=== PATIENT | male | born 1950 | race Caucasian/White ===

== ENCOUNTER 2017-03-09 14:03 | Inpatient (IN) | payer OTHER, MEDICARE ==
[~2017-03-09] VITALS: Ht 182.9 cm; Wt 71.2 kg
[~2017-03-09 14:03] MED LIST: ARIPIPRAZOLE2 MG PO; DULOXETINE HCL60 MG PO; GEMFIBROZIL600 M1 PO; IBUPROFEN600 MG PO; LEVEMIR100 UNIT/1 SC; LEVSIN0.125 M1 PO; METFORMIN HCL500 M3 PO; NOVOLOG100 UNIT/2 SC; OMEPRAZOLE20 M2 PO; OXYCODONE-ACET1 EAC1 PO; PERCOCET 325 MG1 TA2 PO; PRAVASTATIN SOD40 M2 PO; ZETIA10 M1 PO; ZOFRAN ODT4 M1 SL; ZOFRAN4 M1 PO
--- NOTE | 2017-03-09 14:24 | ED AMS/SEIZURE/WEAK/DIZZY ---
History of Present Illness General Chief Complaint: Syncope and Near-Syncope Stated Complaint: SYNCOPE Source: patient, family, old records Exam Limitations: no limitations Vital Signs & Intake/Output Vital Signs & Intake/Output Vital Signs Date Time Temp Pulse Resp B/P B/P Pulse O2 O2 Flow FiO2 Mean Ox Delivery Rate 03/09 1837 97.8 89 20 150/85 100 03/09 1615 98 Room Air 03/09 1613 95.0 82 18 135/83 98 Room Air 03/09 1406 96.5 121 16 95/69 96 Room Air Allergies Coded Allergies: NO KNOWN ALLERGIES (07/22/16) Triage Note: 66 Y/O MALE C/O SYNCOPE TODAY. STATES HE GOT UP FROM THE COUCH AND THEN REMEMBERS "EVERYTHING WENT WHITE AND THEN I WOKE UP". HX PANCREATIC CANCER, FINISHED CHEMO 6 MONTHS AGO AND HAD PORTION OF PANCREAS REMOVED AND SPLEEN REMOVED. AT PRESENT, DENIES PAIN. DENIES SOB. C/O WEAKNESS. B/P /69. HR 120S TAKEN TO ROOM 3 FOR EKG/EVAL Triage Nurses Notes Reviewed? yes Onset: Abrupt Duration: hour(s): (1 hr ago), better Timing: recent history Injury Environment: home Severity: mild, moderate Severity Numbers: 6 No Modifying Factors: none Associated Symptoms: denies HPI: 66-year-old male with history of pancreatic cancer diabetes hypertension presents to the ER if he had a syncopal episode just prior to arrival. The patient states that he was sitting on a couch feeling lightheaded and dizzy when he states he got up to go to the kitchen to attempt to splashed water on his face and he states the next thing he recalls is waking up on the floor. His was there, and help to couch. She states that initially he was drowsy. The patient denies any chest pain palpitations headache nausea vomiting abdominal pain. 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 He finished chemotherapy 2 months ago his oncologist is Dr. triplett. The patient denies any complaints at this time. His states over the past few days he's been drowsy, is been complaining of generalized malaise. He reports that his sugars have been fluctuating anywhere from the 40s to 600s over the past few days. No cough no hemoptysis no shortness of breath or pain with inspiration the patient had a similar episode a few months ago however did not seek care at the time (MALLORY CACERES) Reconcile Medications Duloxetine HCl 60 MG CAPSULE.DR 1 CAP PO BID DEPRESSION (Reported) Ezetimibe (Zetia) 10 MG TABLET 1 TAB PO DAILY CHOLESTEROL (Reported) Gemfibrozil 600 MG TABLET 1 TAB PO BID CHOLESTEROL (Reported) Insulin Aspart (Novolog) (Unknown Strength) VIAL (Unknown Dose) SC SEE SLIDING SCALE DIABETES (Reported) Insulin Detemir (Levemir) 100 UNIT/1 ML VIAL 60 UNITS SC BID DIABETES ( Reported) Metformin HCl 500 MG TABLET 1 TAB PO BID DIABETES (Reported) Omeprazole 20 MG CAPSULE.DR 1 CAP PO BID GI (Reported) Oxycodone HCl 15 MG TABLET 1 TAB PO BIDP PRN PAIN (Reported) Pravastatin Sodium 40 MG TABLET 1 TAB PO DAILY CHOLESTEROL (Reported) (JUAN MIGUEL SAHU,ERI Wolff) Past History Travel History Traveled to [place] past 21 day No Medical History Any Pertinent Medical History? see below for history Neurological: NONE EENT: NONE Cardiovascular: hyperlipidemia Respiratory: NONE Gastrointestinal: NONE Hepatic: NONE Renal: NONE Musculoskeletal: disk herniation Psychiatric: NONE Endocrine: diabetes Blood Disorders: NONE Cancer(s): PANCREATIC CANCER Surgical History Surgical History: partial pancreectomy Psychosocial History Who do you live with Spouse What is your primary language Syriac Tobacco Use: Current Daily Use Daily Tobacco Use Amount/Type: => 5 Cigarettes daily Family History Hx Contributory? No (MALLORY CACERES) Review of Systems Review of Systems Constitutional: Reports: see HPI. All Other Systems: Reviewed and Negative Comments Review of systems: See HPI, All other systems negative. Constitutional, no chills no fever, no malaise HEENT: No visual changes no sore throat no congestion Cardiovascular: No chest pain , no palpitation Skin: no rashes, no change in skin Respiratory: No dyspnea no cough no sputum GI: No nausea no vomiting, no diarrhea, : No dysuria No hematuria, no frequency, no discharge Muscle skeletal: No joint pain, no joint swelling, no back pain, no neck pain, Neurologic: No numbness no confusion, no headache Psych: No stress no depression,. Heme/endocrine: No bruising Immunology: No lymphadenopathy (MALLORY CACERES) Physical Exam Physical Exam General Appearance: well developed/nourished, no apparent distress, alert, awake Comments: Well-developed well-nourished person in no acute distress HEENT: Normal EENT exam; PERRL, EOMI, no nystagmus. HEAD is atraumatic. moist mucous membranes. Neck: Supple, normal range of motion Back: Nontender, no CVA tenderness. Full range of motion Cardiovascular: Regular rate and rhythms no murmurs rubs Respiratory: Chest nontender.There were no bony deformities, no asymmetry. No respiratory distress. Patient speaking in full complete sentences. Breath sounds clear to auscultation bilaterally: NO W/R/R Abdomen: Soft, nontender nondistended, no appreciable organomegaly. Normal bowel sounds. No rebound/guarding, No appreciable enlargement of the abdominal aorta, No ascites. Extremity: No edema, full range of motion of extremities, Neuro: Alert oriented x3, motor sensory normal, cranial nerves II through XII grossly intact. There were no obvious focal neurologic abnormalities. Skin: No appreciable rash on exposed skin, skin is warm and dry. Psych: Mood and affect is normal, memory and judgment is normal. Core Measures ACS in differential dx? Yes CVA/TIA Diagnosis: No Severe Sepsis Present: No Septic Shock Present: No (ERNESTINA LINCOLN,MALLORY) Progress Differential Diagnosis: arrythmia, alcohol intoxication, anemia, benign positional vertigo, CVA/stroke, drug intoxication, electrolyte imbalance, postural hypotension, presyncope, subarachnoid Hem., vertebrobasilar insuff, pe, ami Plan of Care: Orders Procedure Date/time Status Regular Diet 03/10 B Active THYROID STIMULATING HORMONE 03/10 0600 Active LIPID PANEL 03/10 0600 Active GLYCOSYLATED HGB 03/10 0600 Active FREE T4 03/10 0600 Active CBC WITHOUT DIFFERENTIAL 03/10 0600 Active BASIC ELECTROLYTES PLUS BUN&CR 03/10 0600 Active TROPONIN LEVEL 03/09 2200 Active EKG 03/09 220 Active CULTURE,URINE 03/09 1915 Active LOWER RESPIRATORY CULTURE 03/09 1915 Active BLOOD CULTURE 03/09 1915 Active URINALYSIS 03/09 1915 Complete Pathway - chart 03/09 1909 Active Pathway - chart 03/09 1907 Active House Staff 03/09 1907 Active Patient Data 03/09 1907 Active Code Status 03/09 190 Active LACTIC ACID 03/09 1854 Active D-DIMER 03/09 1850 Active Add-on Test (ER Only) 03/09 1849 Active Admit to inpatient 03/09 1742 Active Patient Data 03/09 1740 Active Intake & Output 03/09 1615 Active LACTIC ACID 03/09 1554 Complete Saline Lock 03/09 1431 Active PARTIAL THROMBOPLASTIN TIME 03/09 1431 Complete PROTHROMBIN TIME 03/09 1431 Complete COMPREHENSIVE METABOLIC PANEL 03/09 1431 Complete CBC WITHOUT DIFFERENTIAL 03/09 1431 Complete EKG 03/09 1404 Active VTE Mechanical Prophylaxis 03/09 UNK Active MISTAKE 03/09 UNK Active Telemetry/Cottrell Blower 03/09 UNK Active FingerStick- Glucose 03/09 UNK Active Current Medications Sig/Clover Start time Last Medication Dose Stop Time Status Admin Pravastatin Sodium 40 MG 1700 03/10 1700 AC (Pravachol) Ezetimibe 10 MG DAILY 03/10 1000 AC (Zetia) Insulin Aspart 0 TIDAC 03/10 0800 AC (NovoLOG) Duloxetine HCl 60 MG BID 03/09 2200 AC (Cymbalta) Gemfibrozil 600 MG BID 03/09 2200 AC (Lopid 600 MG Tab) Insulin Detemir 30 UNITS BID 03/09 2200 AC (Levemir) Omeprazole 20 MG BID 03/09 2200 AC (Prilosec) Oxycodone HCl 15 MG BID 03/09 2200 AC (Roxicodone) Sodium Chloride 1,000 ML Q20H 03/09 1945 AC (Normal Saline 0.9%) Acetaminophen 650 MG Q6P PRN 03/09 1915 AC (Tylenol) Ibuprofen 600 MG Q6P PRN 03/09 1915 AC (Motrin) Oxycodone/ 1 TAB Q6P PRN 03/09 1915 AC Acetaminophen (Percocet) Enoxaparin Sodium 40 MG DAILY 03/09 1905 AC (Lovenox) Laboratory Tests 03/09/17 193: Urinalysis LIGHT H, Urine Color YEL, Urine Clarity CLEAR, Urine pH 6.0, Ur Specific Rice 1.020, Urine Protein TRACE H, Urine Ketones TRACE H, Urine Nitrite NEG, Urine Bilirubin NEG, Urine Urobilinogen 0.2, Ur Leukocyte Esterase NEG, Ur Microscopic SEDIMENT EXAMINED, Urine Hemoglobin NEG, Urine Glucose NEG 03/09/17 1607: Lactic Acid 2.3 H 03/09/17 1607: Anion Gap 13, Estimated GFR > 60, BUN/Creatinine Ratio 26.3 H, Glucose 147 H, Calcium 9.8, Total Bilirubin 0.5, AST 14 L, ALT 20 L, Alkaline Phosphatase 101 , Total Protein 6.2 L, Albumin 3.8, Globulin 2.4, Albumin/Globulin Ratio 1.6 03/09/17 1454: PT 9.9, INR 0.94, APTT 22 L, CBC w Diff MAN DIFF ORDERED, RBC 5.34, MCV 88.4, MCH 28.9, RDW 16.2 H, Gran % 68.5, Lymphocytes % 20.6, Monocytes % 8.7, Eosinophils % 1.0, Basophils % 1.2, Absolute Granulocytes 11.0 H, Segmented Neutrophils 68, Absolute Lymphocytes 3.3, Lymphocytes 23, Monocytes 8, Absolute Monocytes 1.4 H, Eosinophils 1, Absolute Eosinophils 0.2, Absolute Basophils 0.2, Normocytic RBCs VERIFIED, Normochromic RBCs VERIFIED, PUBS MCHC 32.7 L Microbiology 03/09 1915 URINE ROUT: Urine Culture - COLB 03/09 1915 LOWER RESP: Respiratory Culture - COLB 03/09 1915 LOWER RESP: Gram Stain - COLB 03/09 1915 BLOOD: Blood Culture - COLB 03/09 1915 BLOOD: Blood Culture - COLB Patient's white blood cell count is persistently elevated IV fluids ordered Repeat evaluation patient resting in no apparent distress he is orthostatic however case was discussed with Dr. Goldberg agrees with plan. Case discussed with Dr. alvarez will admit 1745 dr alvarez in dept to eval pt (ERNESTINA LINCOLN,MALLORY) Diagnostic Imaging: Viewed by Me: Radiology Read, CT Scan. Discussed w/RAD: Radiology Read, CT Scan. Radiology Impression: PATIENT: ROBINSON CAMPO PRESENT AGE: 66 PATIENT ACCOUNT NO: [id number] : 48 LOCATION: [facility] ORDERING PHYSICIAN: MALLORY LINCOLN SERVICE DATE: 03/09/17 EXAM TYPE: RAD - XRY-PORTABLE CHEST XRAY EXAMINATION: XR PORTABLE CHEST CLINICAL INFORMATION: Syncope COMPARISON: Prior chest 07/30/2016 TECHNIQUE: Portable frontal view of the chest was obtained. FINDINGS: Slightly limited as the costophrenic angle on the left is outside the [id number] with examination. Central venous catheter tip in the region of the SVC. LUNGS: Clear. The cardiac silhouette mediastinum pulmonary vascularity are normal. IMPRESSION: Slightly limited examination as the last costophrenic angle is outside the [id number] the exam. Otherwise no acute disease DICTATED BY: SABINO LUCERO MD DATE/ TIME DICTATED:03/09/171510 PRODUCTION POSTING CLERK:SHRUTHI DATE/TIME TRANSCRIBED: 03/09/171510 CONFIDENTIAL, DO NOT COPY WITHOUT APPROPRIATE AUTHORIZATION. < Electronically signed in Other Vendor System> SIGNED BY: SABINO LUCERO MD 03/09/171515, PATIENT: ROBINSON CAMPO PRESENT AGE: 66 PATIENT ACCOUNT NO: [id number] : 48 LOCATION: [facility] ORDERING PHYSICIAN: MALLORY LINCOLN SERVICE DATE: 03/09/17 EXAM TYPE: CAT - CT ABD & PELVIS W/O IV CONTRAS EXAMINATION: CT ABDOMEN AND PELVIS WITHOUT CONTRAST CLINICAL INFORMATION: History of pancreatic cancer. Syncope. COMPARISON : 05/04/2016 TECHNIQUE: Multidetector volumetric imaging was performed from the superior aspect of the liver through the pubic symphysis. Sagittal and coronal reformatted images were obtained on the technologist's workstation. DLP: 289 mGy -cm FINDINGS: LUNG BASES: The visualized lung bases are unremarkable. LIVER, GALLBLADDER, AND BILIARY TREE: The liver is normal in size, shape, and attenuation. No focal hepatic lesion or biliary ductal dilatation is present. Likely small gallstones in the gallbladder lumen. No wall thickening or pericholecystic fluid. PANCREAS: Postsurgical changes with absence of the distal pancreatic body and tail. This suggests resection of the previous pancreatic mass. The remaining pancreatic tissue is atrophic, unchanged. No recurrent mass in the resection bed. SPLEEN: The spleen is not seen and also likely removed. This is a change from prior. ADRENAL GLANDS: Mild thickening of the left adrenal gland with no focal nodule. The right adrenal gland is unremarkable. KIDNEYS AND URETERS: The kidneys are normal in size, shape, and attenuation. No hydronephrosis or hydroureter. 0.7 cm right lower pole calculus is 8 cm from the posterior axillary line. No additional renal calculi. BLADDER: Partially distended with circumferential mild wall thickening. GASTROINTESTINAL TRACT: The stomach and small bowel are unremarkable. No dilated loops of bowel or evidence of obstruction. Normal appendix. There is mild wall thickening of the cecum noted. The remainder of the colon is unremarkable. ABDOMINAL WALL: Mild stranding in the right lower quadrant subcutaneous fat, similar to previous. LYMPH NODES: No pathologically enlarged lymph nodes. Multiple small retroperitoneal nodes are similar to previous. VASCULAR: Mild atherosclerotic calcifications. Ectatic infrarenal abdominal aorta measuring 2.8 cm in AP dimension. PELVIC VISCERA: The prostate and seminal vesicles are unremarkable. OSSEOUS STRUCTURES: Posterior fusion at L4-S1. There is a compression deformity of the L2 vertebral body which present on the imaging from July 2016. No acute or suspicious osseous abnormalities. IMPRESSION: 1. Postsurgical changes status post partial pancreatectomy. No recurrent mass seen in the pancreatic bed on this noncontrast study. No new lymphadenopathy. 2. Circumferential wall thickening of the bladder could be secondary to underdistention or possibly an outlet obstruction. DICTATED BY: BRIAN DIAZ MD DATE/TIME DICTATED:1549 PRODUCTION POSTING CLERK:SHRUTHI DATE/TIME TRANSCRIBED:03/09/171549 CONFIDENTIAL, DO NOT COPY WITHOUT APPROPRIATE AUTHORIZATION. <Electronically signed in Other Vendor System> SIGNED BY: EMILY SAHU,BRIAN 03/09/17 1601, PATIENT: ROBINSON CAMPO PRESENT AGE: 66 PATIENT ACCOUNT NO: [id number] : 48 LOCATION: [facility] ORDERING PHYSICIAN: MALLORY LINCOLN SERVICE DATE: 03/09/171439 EXAM TYPE: CAT - CT HEAD WO IV CONTRAST EXAMINATION: CT HEAD WITHOUT CONTRAST CLINICAL INFORMATION: Syncope. Evaluate for intracranial hemorrhage. COMPARISON: CT head December 2008. MRI of brain December 2008. TECHNIQUE: Contiguous axial imaging was performed from the skull base to vertex without intravenous administration of contrast. DLP: 606 mGy-cm FINDINGS: There is focal encephalomalacia in the left posterior parietal and occipital region compatible with an old infarct, unchanged. Similarly, there is a focal area of encephalomalacia in the right posterior parietal region compatible with old infarction, unchanged. There is no mass, hemorrhage or cerebral edema. The sinuses are clear. The mastoid air cells are clear. The soft tissues are normal. There is no fracture. 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 No acute abnormality. DICTATED BY: SABINO LUCERO MD DATE/TIME DICTATED:1545 PRODUCTION POSTING CLERK:SHRUTHI DATE/TIME TRANSCRIBED:03/09/171545 CONFIDENTIAL, DO NOT COPY WITHOUT APPROPRIATE AUTHORIZATION. <Electronically signed in Other Vendor System> SIGNED BY: SABINO LUCERO MD 03/09/17 1601 Initial ED EKG: STACH AT 100, NO ACUTE ST SEG CHANGES, NORMAL AXIS Prior EKG: unchanged (07/2016) Rhythm Strip: sinus tachycardia (MALLORY CACERES) Departure Departure Time of Disposition: 1712 Disposition: STILL A PATIENT Condition: Stable Clinical Impression Primary Impression: Syncope Secondary Impressions: Lactic acidosis, Orthostatic hypotension Referrals: BRENDON SHAU,BROOKE Rebollar (PCP/Family) Departure Forms: Customer Survey General Discharge Information Admission Note Spoke With: SABINO ALVAREZ MD Documentation of Exam: Documentation of any treatments & extenuating circumstances including Concerns Regarding Discharge (functional status, medication knowledge or non-compliance, living conditions, etc.) that warrant an admission rather than observation: [ trend labs, iv fluids, tele monitoring, trend trops, cardiology and endocrine consult, premature discharge would be medically harmful (MALLORY CACERES) PA/GENERAL II FARMWORKER Co-Sign Statement Statement: ED Attending supervision documentation- [X] I saw and evaluated the patient. I have also reviewed all the pertinent lab results and diagnostic results. I agree with the findings and the plan of care as documented in the PA's/GENERAL II FARMWORKER's documentation. [X] I have reviewed the ED Record and agree with the PA's/GENERAL II FARMWORKER's documentation. [] Additions or exceptions (if any) to the PAs/GENERAL II FARMWORKER's note and plan are summarized below: [] (JUAN MIGUEL SAHU,ERI Wolff)
[2017-03-09 15:07] LABS: ABSOLUTE BASOPHIL COUNT 0.2 /CUMM (0.0-0.2); ABSOLUTE EOSINOPHIL COUNT 0.2 /CUMM (0.0-0.7); ABSOLUTE LYMPH COUNT 3.3 /CUMM (1.2-3.4); ABSOLUTE MONOCYTE COUNT 1.4 /CUMM (0.10-0.60); BASOPHIL % 1.2 % (0.0-2.0); GRANULOCYTE % 68.5 % (42.2-75.2); HEMATOCRIT 47.2 % (42-52); MEAN CORPUSCULAR HGB 28.9 PG (27.0-31.0); MEAN CORPUSCULAR HGB CONC 32.7 G/DL (33.0-37.0); MEAN CORPUSCULAR VOLUME 88.4 FL (80.0-94.0); RBC DISTRIBUTION WIDTH 16.2 % (11.5-14.5); RED BLOOD CELL CT 5.34 /CUMM (4.70-6.10)
[2017-03-09] MEDS ORDERED: OXYCODONE HCL15 M1 PO (15:08)
--- NOTE | 2017-03-09 15:16 | RADIOLOGY REPORT ---
EXAMINATION: XR PORTABLE CHEST CLINICAL INFORMATION: Syncope COMPARISON: Prior chest 07/30/2016 TECHNIQUE: Portable frontal view of the chest was obtained. FINDINGS: Slightly limited as the costophrenic angle on the left is outside the [id number] with examination. Central venous catheter tip in the region of the SVC. LUNGS: Clear. The cardiac silhouette mediastinum pulmonary vascularity are normal. IMPRESSION: Slightly limited examination as the last costophrenic angle is outside the [id number] the exam. Otherwise no acute disease
[2017-03-09 15:18] LABS: PT 9.9 SEC (9.4-12.5); PTT 22 SEC (25-37)
[2017-03-09] MEDS ORDERED: BENTYL10 M1 PO (15:45)
[2017-03-09] MEDS ORDERED: FLAGYL500 MG PO (15:45)
[2017-03-09] MEDS ORDERED: CIPRO500 M1 PO (15:45)
[2017-03-09] MEDS ORDERED: ZOFRAN ODT4 M1 SL (15:45)
--- NOTE | 2017-03-09 16:01 | CT SCAN REPORT ---
EXAMINATION: CT ABDOMEN AND PELVIS WITHOUT CONTRAST CLINICAL INFORMATION: History of pancreatic cancer. Syncope. COMPARISON: 05/04/2016 TECHNIQUE: Multidetector volumetric imaging was performed from the superior aspect of the liver through the pubic symphysis. Sagittal and coronal reformatted images were obtained on the technologist's workstation. DLP: 289 mGy-cm FINDINGS: LUNG BASES: The visualized lung bases are unremarkable. LIVER, GALLBLADDER, AND BILIARY TREE: The liver is normal in size, shape, and attenuation. No focal hepatic lesion or biliary ductal dilatation is present. Likely small gallstones in the gallbladder lumen. No wall thickening or pericholecystic fluid. PANCREAS: Postsurgical changes with absence of the distal pancreatic body and tail. This suggests resection of the previous pancreatic mass. The remaining pancreatic tissue is atrophic, unchanged. No recurrent mass in the resection bed. SPLEEN: The spleen is not seen and also likely removed. This is a change from prior. ADRENAL GLANDS: Mild thickening of the left adrenal gland with no focal nodule. The right adrenal gland is unremarkable. KIDNEYS AND URETERS: The kidneys are normal in size, shape, and attenuation. No hydronephrosis or hydroureter. 0.7 cm right lower pole calculus is 8 cm from the posterior axillary line. No additional renal calculi. BLADDER: Partially distended with circumferential mild wall thickening. GASTROINTESTINAL TRACT: The stomach and small bowel are unremarkable. No dilated loops of bowel or evidence of obstruction. Normal appendix. There is mild wall thickening of the cecum noted. The remainder of the colon is unremarkable. ABDOMINAL WALL: Mild stranding in the right lower quadrant subcutaneous fat, similar to previous. LYMPH NODES: No pathologically enlarged lymph nodes. Multiple small retroperitoneal nodes are similar to previous. VASCULAR: Mild atherosclerotic calcifications. Ectatic infrarenal abdominal aorta measuring 2.8 cm in AP dimension. PELVIC VISCERA: The prostate and seminal vesicles are unremarkable. OSSEOUS STRUCTURES: Posterior fusion at L4-S1. There is a compression deformity of the L2 vertebral body which present on the imaging from July 2016. No acute or suspicious osseous abnormalities. IMPRESSION: 1. Postsurgical changes status post partial pancreatectomy. No recurrent mass seen in the pancreatic bed on this noncontrast study. No new lymphadenopathy. 2. Circumferential wall thickening of the bladder could be secondary to underdistention or possibly an outlet obstruction.
--- NOTE | 2017-03-09 16:01 | CT SCAN REPORT ---
EXAMINATION: CT HEAD WITHOUT CONTRAST CLINICAL INFORMATION: Syncope. Evaluate for intracranial hemorrhage. COMPARISON: CT head December 2008. MRI of brain December 2008. TECHNIQUE: Contiguous axial imaging was performed from the skull base to vertex without intravenous administration of contrast. DLP: 606 mGy-cm FINDINGS: There is focal encephalomalacia in the left posterior parietal and occipital region compatible with an old infarct, unchanged. Similarly, there is a focal area of encephalomalacia in the right posterior parietal region compatible with old infarction, unchanged. There is no mass, hemorrhage or cerebral edema. The sinuses are clear. The mastoid air cells are clear. The soft tissues are normal. There is no fracture. 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 No acute abnormality.
--- NOTE | 2017-03-09 18:20 | History & Physical ---
ARABELLA SAHU,[facility] 03/09/17 1819: General Information and HPI Statement: I have seen and personally examined ROBINSON CAMPO and documented this H&P. The patient is a 66 year old M who presented with a patient stated chief complaint of syncopal episode. Source of Information: patient, family Exam Limitations: no limitations History of Present Illness: This is a 66-year-old very pleasant gentleman with a past medical history of hypertension, hyperlipidemia, recent diagnosis of pancreatic cancer in 2015 requiring up pancreectomy and splenectomy in April 2016, status post chemotherapy last treatment in December 2016, insulin-dependent diabetes, presents for evaluation of a syncopal event. Patient reports that today while at his normal state of health and while seated on his couch, he started feeling warmth on his face and decided to get up to go get some water to flush his face. He reports that when he immediately stood up. he felt dizzy and the next thing he remembers was that he was back on the couch. This episode was witnessed by his spouse who reports that patient stood up and fell back on the couch,losing consciousness for about few seconds. Patient is reported to have not had any postictal confusion when he regained consciousness, no seizure-like activity, no tongue biting, no urinary or bladder incontinence. The patient himself reports that prior to this episode he did not have any chest pain, palpitation, vertigo, or headaches. A short while after the syncopal episode, pt's blood glucose was checked by spouse and found to be in the mid 200s. During the past week, patient is reported to have been more tired than usual however denies any fever, chills, recent infection, sick contacts, cough, hemoptysis, recent travel, decreased oral intake, nausea, vomiting, any focal neurological deficit, abdominal pain ,diarrhea, or dysuria. Allergies/Medications Allergies: Coded Allergies: NO KNOWN ALLERGIES (07/22/16) Past History Travel History Traveled to [place] past 21 day No Medical History Neurological: NONE EENT: NONE Cardiovascular: hyperlipidemia Respiratory: NONE Gastrointestinal: NONE Hepatic: NONE Renal: NONE Musculoskeletal: disk herniation Psychiatric: NONE Endocrine: diabetes Blood Disorders: NONE Cancer(s): PANCREATIC CANCER Surgical History Surgical History: partial pancreectomy Review of Systems Review of Systems Constitutional: Reports: see HPI. Exam & Diagnostic Data Last 24 Hrs of Vital Signs/I&O Vital Signs Date Time Temp Pulse Resp B/P B/P Pulse O2 O2 Flow FiO2 Mean Ox Delivery Rate 03/09 1837 97.8 89 20 150/85 100 03/09 1615 98 Room Air 03/09 1613 95.0 82 18 135/83 98 Room Air 03/09 1406 96.5 121 16 95/69 96 Room Air Intake & Output 03/09 1600 03/09 0800 03/09 0000 Intake Total Output Total Balance Patient 54.431 kg Weight Weight Reported by Patient Measurement Method Physical Exam General Appearance Alert, Oriented X3, Cooperative, No Acute Distress Skin No Significant Lesion Skin Temp/Moisture Exam: Warm/Dry Sepsis Skin Exam (color): Normal for Ethnicity HEENT Atraumatic, PERRLA, Mucous Membr. moist/pink Neck Supple, No JVD Lymphatic Cervical nl Cardiovascular Regular Rate, Normal S1, Normal S2 Lungs Clear to Auscultation, Normal Air Movement Abdomen Normal Bowel Sounds, Soft, No Tenderness Neurological Normal Gait, Normal Speech, Strength at 5/5 X4 Ext, Normal Tone, Sensation Intact, Cranial Nerves 3-12 NL Extremities No Clubbing, No Cyanosis, No Edema, Normal Pulses Last 24 Hrs of Labs/Pro: Laboratory Tests 03/09/172030: Lactic Acid 0.9, D-Dimer Pending 03/09/171930: Urinalysis LIGHT H, Urine Color YEL, Urine Clarity CLEAR, Urine pH 6.0, Ur Specific Weed 1.020, Urine Protein TRACE H, Urine Ketones TRACE H, Urine Nitrite NEG, Urine Bilirubin NEG, Urine Urobilinogen 0.2, Ur Leukocyte Esterase NEG, Ur Microscopic SEDIMENT EXAMINED, Urine Hemoglobin NEG, Urine Glucose NEG 03/09/17 1607: Lactic Acid 2.3 H 03/09/17 1607: Anion Gap 13, Estimated GFR > 60, BUN/Creatinine Ratio 26.3 H, Glucose 147 H, Calcium 9.8, Total Bilirubin 0.5, AST 14 L, ALT 20 L, Alkaline Phosphatase 101 , Total Protein 6.2 L, Albumin 3.8, Globulin 2.4, Albumin/Globulin Ratio 1.6 03/09/17 1454: PT 9.9, INR 0.94, APTT 22 L, CBC w Diff MAN DIFF ORDERED, RBC 5.34, MCV 88.4, MCH 28.9, RDW 16.2 H, Gran % 68.5, Lymphocytes % 20.6, Monocytes % 8.7, Eosinophils % 1.0, Basophils % 1.2, Absolute Granulocytes 11.0 H, Segmented Neutrophils 68, Absolute Lymphocytes 3.3, Lymphocytes 23, Monocytes 8, Absolute Monocytes 1.4 H, Eosinophils 1, Absolute Eosinophils 0.2, Absolute Basophils 0.2, Normocytic RBCs VERIFIED, Normochromic RBCs VERIFIED, PUBS MCHC 32.7 L Microbiology 03/09 1915 URINE ROUT: Urine Culture - COLB 03/09 1915 LOWER RESP: Respiratory Culture - COLB 03/09 1915 LOWER RESP: Gram Stain - COLB 03/09 1915 BLOOD: Blood Culture - COLB 03/09 1915 BLOOD: Blood Culture - COLB Diagnostic Data EKG Results No acute ischemic changes CXR Results SERVICE DATE: 03/09/17 EXAM TYPE: RAD - XRY-PORTABLE CHEST XRAY EXAMINATION: XR PORTABLE CHEST CLINICAL INFORMATION: Syncope COMPARISON: Prior chest 07/30/2016 TECHNIQUE: Portable frontal view of the chest was obtained. FINDINGS: Slightly limited as the costophrenic angle on the left is outside the [id number] with examination. Central venous catheter tip in the region of the SVC. LUNGS: Clear. The cardiac silhouette mediastinum pulmonary vascularity are normal. IMPRESSION: Slightly limited examination as the last costophrenic angle is outside the [id number] the exam. Otherwise no acute disease Other Results SERVICE DATE: 03/09/17 EXAM TYPE: CAT - CT HEAD WO IV CONTRAST EXAMINATION: CT HEAD WITHOUT CONTRAST CLINICAL INFORMATION: Syncope. Evaluate for intracranial hemorrhage. COMPARISON: CT head December 2008. MRI of brain December 2008. TECHNIQUE: Contiguous axial imaging was performed from the skull base to vertex without intravenous administration of contrast. DLP: 606 mGy-cm FINDINGS: There is focal encephalomalacia in the left posterior parietal and occipital region compatible with an old infarct, unchanged. Similarly, there is a focal area of encephalomalacia in the right posterior parietal region compatible with old infarction, unchanged. There is no mass, hemorrhage or cerebral edema. The sinuses are clear. The mastoid air cells are clear. The soft tissues are normal. There is no fracture. 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 No acute abnormality. Assessment/Plan Assessment: This is a 66-year-old gentleman with a significant focal history of pancreatic cancer, diabetes hypertension, hyperlipidemia, diabetes, who presents for evaluation after having a syncopal episode. Patient seemed to have experienced a prodromal symptom of faded vision and some dizziness. While at the ED, he is noted to have borderline low blood pressure with systolic of 95 and tachycardic, requiring 2 L boluses of normal saline with appropriate correction noted. Orthostatics obtain were also positivelying 153/89 and on standing dropped down to 120/80 mmHg. patient labs also remarkable for leukocytosis the white blood count of 16 and an elevated lactic acid 2.3. Impression * Syncope. The prodrome of faded vision, warmness on face and dizziness, and a positive findings with orthostats is suggestive of a syncopal episode due to secondary orthostatic hypotension from dehydration. His BUN/creatinine ratio could be further evidence of dehydration. He was reported to have been not at his baseline in the past week and therefore it is possible that he has had decreased oral intake. Other possible etiology of syncope include cardiac etiology, however the lack of chest pain, palpitation, or exertion preceding the syncope, and unremarkable EKG or history of any structural heart defects makes cardiac etiology less likely. Hypoglycemia can cause loss of consciousness, however his blood glucose was reported to be around mid 200s. Pulmonary embolism is a possibility in a pt with malignancy who presents with a syncopal episode and is also found to be tachycardic, however he is saturating well on room air. The lack of any seizure-like activity or postictal confusion also makes seizure an unlikely cause. Vaso- vagal being the most common cause of syncope is always a possibility. * Leukocytosis and meeting SIRS criteria (elevated WBC and tachycardia). Reactive versus infectious. Patient has leukocytosis and presented with tachycardia. Chest x-ray is unremarkable for any acute infectious pathology. Patient denied any abdominal pain or dysuria or any recent sick contacts. The tachycardia could be most likely from dehydration rather than an infection source. * Metabolic acidosis with non-elevated gap. Patient does have elevated lactic acid and decreased bicarbonate. Possible etiologies include infection. Medications such as patient's metformin Could be responsible for the metabolic acidosis * History of hyperlipidemia * History of diabetes * History of anxiety and depression * History of pancreatic cancer with pancreatectomy and chemotherapy Plan * Admit to telemetry for cardiac monitoring for arrhythmias * Trend troponin and EKG to rule out ACS * Will trend lactic acid * Will obtain urine sputum culture to assess for any infectious source * Gentle hydration 75 mils per hour normal saline * Will obtain cardiology consultation and records (will consider echo if records from [facility] do not indicate a recent one performed). * Accu-Cheks 3 times a day and bedtime and NovoLog and Levemir sliding scale * Will obtain endocrinology consultation for blood glucose optimization As Ranked By This Provider Problem List: 1. Leukocytosis 2. Lactic acidosis 3. Orthostatic hypotension 4. Syncope Core Measures/Miscellaneous Acute Coronary Syndrome ACS Diagnosis: No Cerebrovascular Accident CVA/TIA Diagnosis: No Congestive Heart Failure CHF Diagnosis: No Venous Thromboembolism VTE Risk Factors: [facility] illness [facility] prophylaxis d/t: No contraindications No VTE Pharm Prophylaxis d/t: No contraindications VTE Diagnosis: No VTE Type: NONE VTE Confirmed by (Test): NONE Severe Sepsis Severe Sepsis Present: No Septic Shock Septic Shock Present: No Miscellaneous Documentation Attending Case Discussed With: SABINO ALVAREZ MD Primary Care Physician: BROOKE OLIVAS MD Patient sees these Specialists [facility] Level of Patient Care: Telemetry NANCY GROVES 03/09/17 1903: Resident Review Statement Resident Statement: examined this patient, discussed with spring internship, agreed with spring internship Other Findings: Patient is 66-year-old male with past medical history significant for pancreatic cancer diagnosed in March 2016 status post partial pancreatectomy and splenectomy in April 2016, status post chemotherapy last 01/07/2017, saline dependent diabetes mellitus, dyslipidemia and multiple back surgeries with chronic back pain came with chief complaint of syncopal episode this afternoon. Patient had a witnessed syncopal episode while he was getting out of a couch this afternoon when he was trying to get up and all of a sudden he felt warm status of his face and blackout and the next thing he remembered was found him back on couch. This event was witnessed by his and she mentioned that he was unconscious for a couple of seconds but no seizure-like activity, bowel or urinary incontinence was noticed. Patient was not confused after that episode but he was feeling very weak. He denied palpitations, chest pain, headaches, blurring of his vision, diaphoresis before or after the episode. He checked his blood sugar which was in 200s in the morning and also his checked his blood sugar after a while of his episode which was again in 200s. He admits to having poor oral intake and appetite lately and lost 5 pounds in last 1-2 months. He denied any change in his medications, sick contacts, recent travel, lower extremity edema, any urinary or bowel complaints. He does mention that he felt very weak and not feeling well for last couple of days. Of note patient had similar episode almost a month ago where did not see any physician at that point. Patient was also scheduled to see Dr. houser today for port flush. His vital signs on admission Temperature 96.5, pulse 121, respiratory rate 16, blood pressure 95/69 and he was saturating 96% on room air. Given 2 boluses of normal saline and blood pressure came up to 135/83. He was orthostatic positive on admission when his blood pressure on lying 153/89 and on standing dropped down to 120/80 mmHg Labs on admission WBC count 16.0, hemoglobin 15.4, hematocrit 47.2, Sodium 139, potassium 4.5, BUNs 21, creatinine 0.8, lactic acid 2.3 Chest x-ray negative Head CT was negative for any intracranial pathology Abdominal and pelvis CT was also negative for any significant abdominal findings with no new lymphadenopathy EKG showed sinus tachycardia with no acute ST T-wave changes Assessment and plan 66-year-old gentleman with history of pancreatic cancer status post partial pancreatectomy/splenectomy, status post chemotherapy therapy, insulin- dependent diabetes mellitus and dyslipidemia came with presenting complaint of syncopal episode this afternoon for oral intake and orthostatic positive vital signs most likely dehydration but arrhythmias needs to be ruled out. Problem list 1. Syncopal episode could be due to dehydration/vasovagal syncope but arrhythmias needs to be rule out 2. Sinus tachycardia we will rule out demand ischemia and given his history of underlying malignancy PE needs to be ruled out 3. History of dyslipidemia 4. History of anxiety/depression 5. History of pancreatic cancer status post pancreatectomy/splenectomy and chemotherapy 6. Insulin-dependent diabetes mellitus 7. Leukocytosis could be reactive but we will rule out infectious causes given underlying history and will send panculture 8. Lactic acidosis we will rule out infection as patient is on metformin his lactic acidosis doses could be due to that Plan 1. Telemetry monitoring 2. Accu-Cheks 3 times a day and at bedtime Repeat. We'll hold metformin but will continue with NovoLog according to sliding scale and half of dose of Levemir of his home dose 4. We will request an endocrinology evaluation in a.m. given episode of syncope to rule out hypoglycemia 5. We will check hemoglobin A1c, TSH and free T4 6. We will send panculture given his leukocytosis 7. Gentle IV hydration 8. EKG and troponins at 10 PM and we will repeat if elevated. 9. Cardiology evaluation in a.m. and we will consider an echo if it's not done at Dr. Damico's office recently 10. We'll request Dr. Fu is to evaluate patient in a.m. and also patient needs port flush 11. We'll continue his home medications including statins, gemfibrozil and Zetia 12. We'll check orthostatic vital signs every shift 13. Given underlying history of malignancy we will rule out PE probability is low as he is not hypoxemic and will check d-dimer's if elevated will consider doing CTA chest Diabetic diet Pharmacological DVT prophylaxis Patient is full code SABINO ALVAREZ MD 03/09/17 0306: General Information and HPI Allergies/Medications Home Med list Duloxetine HCl 60 MG CAPSULE. 1 CAP PO BID DEPRESSION (Reported) Ezetimibe (Zetia) 10 MG TABLET 1 TAB PO DAILY CHOLESTEROL (Reported) Gemfibrozil 600 MG TABLET 1 TAB PO BID CHOLESTEROL (Reported) Insulin Aspart, Recombinant (Novolog Flexpen) 100 UNIT/ML INSULN.PEN 0 SC SEE ADMIN CRITERIA diabetes sliding scale less than 80mg/dl: No insulin 80-100:6 units 101-120:6 units 121-150:6 units 151-200:8 units 201-250:9 units 251-300:10 units 301-350:11 units 351-400:12 units >400:13 units Insulin Detemir (Levemir) 100 UNIT/ML VIAL 25 UNITS SC BID DIABETES Omeprazole 20 MG CAPSULE. 1 CAP PO BID GI (Reported) Oxycodone HCl 15 MG TABLET 1 TAB PO BIDP PRN PAIN (Reported) Pravastatin Sodium 40 MG TABLET 1 TAB PO DAILY CHOLESTEROL (Reported) Attending MD Review Statement Attending Statement Attending MD Statement: examined this patient, discuss w/resident/PA/CONDITIONER TENDER, agreed w/resident/PA/CONDITIONER TENDER, discussed with family, reviewed EMR data (avail), reviewed images, amended to note Attending Assessment/Plan: The patient is a 66 yo male with h/o pancreatic cancer (s/p pancreatectomy and splenectomy 05/08 and subsequent chemotherapy with Gemzar completed 01/07), DM2, GERD, and HL who presented in the ED after a syncopal event at his home today. The patient stated he had eaten in the morning, however his appetite hd been poor for several weeks. His witnessed and said he was out for a matter of seconds. No seizure activity noted. He had a similar episode that was mild approximately 1 month ago. Stated he had no hypoglycemia. In the ED was noted to be significantly orthostatic with + lactic acidosis. He denied any nausea, vomiting, abdominal pain or diarrhea. Physical Exam: VS: T 96.5, P 121-89, R 16-20, BP 95/69-150/85, PO 100% RA HEENT: eyes- PERRLA, EOMi julio césar- dry mucosa w/o lesions Neck: no JVD, bruits, adenopathy Chest: clear Cor: RRR (at time of my exam), nl S1, S2 w/o murm Abd: BS+, soft, NT, s/p splenectomy Ext: no edema Neuro: alert & oriented x 3, non-focal Labs/Tests- as above Impression/Plan: #S/P Syncope- in patient who was significantly orthostatic. Most likely secondary to orthostasis/volume depletion. Hypoglycemia is still a possibility, however patient states sugar was OK after event. No seizure activity noted by . No dyspnea/chest pain to suggest pulmonary embolism. Sinus tachycardia on initial EKG. Plan: Admit to telemetry - watch for arrhythmia. Cardiology consult - Dr. Lawrence- he has seen as OP. Serial troponin's. #Orthostatic Hypotension/Orthostasis- most likely secondary to volume depletion due to poor po intake over several week period. Repleted in ED. Plan: Monitor I/O's and keep hydrated. Follow orthostatic VS. #Lactic Acidosis/SIRS- patient technically meets SIRS criteria as above with elevated WBC, low BP, lactic acidosis, etc. No clear focal infection. May be related to Metformin therapy. Plan: Follow-up lactate level, CBC/WBC, nj culture done. Would discontinue Metformin. #H/O Pancreatic Cancer- s/p pancreatectomy/splenectomy and chemotherapy with Gemzar completed 01/07. Was scheduled to see Dr. Bates and needs Port-A-Cath flushed. Plan: Will notify Dr. Bates. Consult IV nurse regarding Port flush (was last flushed 01/07). #DM2- Has been on both oral agents and insulin. As above, concern regarding Metformin as cause of acidosis. Plan: Follow glucoscans, insulin and hold oral agents. #HL- on Pravastatin. Plan: Continue Pravasatin. #Cardiac- patient states did have full cardiac evaluation by Dr. Lawrence in last year. Plan: Cardiology evaluation Dr. Lawrence.
[2017-03-09 21:05] VITALS: BP 146/78
--- NOTE | 2017-03-09 22:15 | Admission Certification ---
Admission Certification Certification Statement - As attending physician, I certify that at the time of - admission, based on clinical presentation, severity of - symptoms, need for further diagnostic testing and - therapeutic interventions, and risk of adverse outcomes - without in-hospital treatment, in my clinical assessment, - this patient requires an acute hospital stay for a minimum - of two nights or longer. I have also considered psychsocial - factors such as support system, advanced age, financial - issues, cognitive issues, and failed out-patient treatments, - past re-admission history, safety of patient, and lack of - compliance as applicable. Specific rationale supporting this admission is: The patient presented post syncopal event at home, meets SIRS criteria, orthotstatic (30 mm), lactic acidosis. Needs admission for IV fluids, nj culture, follow-up lactate, pickle solution maker, check troponins, Cardiology and Oncology evaluations (h/o pancreatic cancer).
[2017-03-10 00:18] VITALS: BP 128/58
--- NOTE | 2017-03-10 07:52 | Cons- Oncology ---
General Information and HPI Consulting Request Date of Consult: 03/10/17 Requested By: SABINO ALVAREZ MD History of Present Illness: The patient is a 66-year-old gentleman status post pancreatectomy/splenectomy for pancreatic cancer. The patient also completed adjuvant gemcitabine chemotherapy. Patient is now admitted with his second syncopal episode within a month. Patient denied headache dizziness or blurred vision. The patient denied chest pain shortness of breath cough or hemoptysis. Patient denied fevers or rigors. The patient now feels well. Allergies/Medications Allergies: Coded Allergies: NO KNOWN ALLERGIES (07/22/16) Home Med List: Duloxetine HCl 60 MG CAPSULE.DR 1 CAP PO BID DEPRESSION (Reported) Ezetimibe (Zetia) 10 MG TABLET 1 TAB PO DAILY CHOLESTEROL (Reported) Gemfibrozil 600 MG TABLET 1 TAB PO BID CHOLESTEROL (Reported) Insulin Aspart (Novolog) (Unknown Strength) VIAL (Unknown Dose) SC SEE SLIDING SCALE DIABETES (Reported) Insulin Detemir (Levemir) 100 UNIT/1 ML VIAL 60 UNITS SC BID DIABETES ( Reported) Metformin HCl 500 MG TABLET 1 TAB PO BID DIABETES (Reported) Omeprazole 20 MG CAPSULE.DR 1 CAP PO BID GI (Reported) Oxycodone HCl 15 MG TABLET 1 TAB PO BIDP PRN PAIN (Reported) Pravastatin Sodium 40 MG TABLET 1 TAB PO DAILY CHOLESTEROL (Reported) Current Medications: Current Medications Sig/Clover Start time Last Medication Dose Route Stop Time Status Admin Acetaminophen 650 MG Q6P PRN 03/09 1915 AC PO Duloxetine HCl 60 MG BID 03/09 2200 AC 03/09 PO 223 Enoxaparin Sodium 0 .STK-MED ONE 03/094 DC SC Enoxaparin Sodium 40 MG DAILY 03/09 1905 AC 03/09 SC 204 Ezetimibe 10 MG DAILY 03/10 1000 AC PO Gemfibrozil 600 MG BID 03/090 AC 03/09 PO 2237 Ibuprofen 600 MG Q6P PRN 03/09 1915 AC PO Insulin Aspart 0 TIDAC 03/10 0800 AC SC Insulin Detemir 30 UNITS BID 03/090 AC 03/09 SC 223 Omeprazole 20 MG BID 03/09 2200 AC 03/09 PO 2237 Oxycodone HCl 15 MG BID 03/090 AC 03/09 PO 223 Oxycodone/ 1 TAB Q6P PRN 03/09 1915 AC 03/10 Acetaminophen PO 0640 Pravastatin Sodium 40 MG 1700 03/10 1700 AC PO Sodium Chloride 1,000 ML Q20H 03/09 1945 AC 03/09 IV 2113 Sodium Chloride 1,000 ML BOLUS ONE 03/09 1630 DC 03/09 IV 03/09 1729 1651 Sodium Chloride 1,000 ML BOLUS ONE 03/09 1445 DC 03/09 IV 03/09 1544 1458 Review of Systems Review of Systems: The patient denies nausea vomiting diarrhea. The patient denies dysuria hematuria. 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 Home Smoking Status: Current Everyday Smoker Exam & Diagnostic Data Vital Signs and I&O Vital Signs Date Time Temp Pulse Resp B/P B/P Pulse O2 O2 Flow FiO2 Mean Ox Delivery Rate 03/10 0018 98.7 68 18 128/58 95 Room Air 03/09 2105 99.0 76 16 146/78 96 Room Air 03/09 2058 96 Room Air 03/09 2041 80 18 134/78 95 Room Air 03/09 1837 97.8 89 20 150/85 100 03/09 1615 98 Room Air 03/09 1613 95.0 82 18 135/83 98 Room Air 03/09 1406 96.5 121 16 95/69 96 Room Air Intake & Output 03/10 0800 03/10 0000 03/09 1600 Intake Total 640 2680 Output Total 650 Balance -10 2680 Intake, IV 400 2200 Intake, Oral 240 480 Number 0 Bowel Movements Output, Urine 650 Patient 157 lb 120 lb Weight Weight Reported by Patient Reported by Patient Measurement Method Gen.: in NAD ENT: Sclera anicteric Chest: Normal respiratory effort, decreased breath sounds Cor: RRR, no extra sounds Abdomen: Soft, bowel sounds present, no tenderness, no rebound Extremities: Without clubbing, cyanosis, or asymmetric edema Neurology: Alert and oriented 3, no gross deficit Skin: No rashes Port site-no tenderness or erythema Last 48 Hours of Lab Results: Laboratory Tests 03/10 03/09 03/09 0630 2350 2031 Chemistry Sodium Pending Potassium Pending Chloride Pending Carbon Dioxide Pending Anion Gap Pending BUN Pending Creatinine Pending BUN/Creatinine Ratio Pending Hemoglobin A1c Pending Lactic Acid (0.7 - 2.1 mmol/L) 0.9 Troponin I (<0.11 ng/ml) < 0.01 Triglycerides Pending Cholesterol Pending LDL Cholesterol, Calc Pending HDL Cholesterol Pending Cholesterol/HDL Ratio Pending TSH Pending Free T4 Pending Coagulation D-Dimer (70 - 232 ng/ml) < 200 Hematology CBC w Diff Pending WBC Pending RBC Pending Hgb Pending Hct Pending MCV Pending MCH Pending RDW Pending Plt Count Pending MPV Pending PUBS MCHC Pending 03/09 03/09 03/09 1931 1607 1607 Chemistry Sodium (137 - 145 mmol/L) 139 Potassium (3.5 - 5.1 mmol/L) 4.5 Chloride (98 - 107 mmol/L) 106 Carbon Dioxide (22 - 30 mmol/L) 19 L Anion Gap (5 - 16) 13 BUN (9 - 20 mg/dL) 21 H Creatinine (0.7 - 1.2 mg/dL) 0.8 Estimated GFR (>60 ml/min) > 60 BUN/Creatinine Ratio (7 - 25 %) 26.3 H Glucose (65 - 99 mg/dL) 147 H Lactic Acid (0.7 - 2.1 mmol/L) 2.3 H Calcium (8.4 - 10.2 mg/dL) 9.8 Total Bilirubin (0.2 - 1.3 mg/dL) 0.5 AST (17 - 59 U/L) 14 L ALT (21 - 72 U/L) 20 L Alkaline Phosphatase (< 127 U/L) 101 Total Protein (6.3 - 8.2 g/dL) 6.2 L Albumin (3.5 - 5.0 g/dL) 3.8 Globulin (1.9 - 4.2 gm/dL) 2.4 Albumin/Globulin Ratio (1.1 - 2.2 %) 1.6 Urines Urinalysis LIGHT H Urine Color (YEL,AMB,STR) YEL Urine Clarity (CLEAR) CLEAR Urine pH (5.0 - 8.0) 6.0 Ur Specific [place] (1.001 - 1.035) 1.020 Urine Protein (NEG,<30 MG/DL) TRACE H Urine Ketones (NEG) TRACE H Urine Nitrite (NEG) NEG Urine Bilirubin (NEG) NEG Urine Urobilinogen (0.1 - 1.0 EU/dl) 0.2 Ur Leukocyte Esterase (NEG) NEG Ur Microscopic SEDIMENT EXAMINED Urine Hemoglobin (NEG) NEG Urine Glucose (N MG/DL) NEG 03/09 1454 Coagulation PT (9.4 - 12.5 SEC) 9.9 INR (0.90 - 1.17) 0.94 APTT (25 - 37 SEC) 22 L Hematology CBC w Diff MAN DIFF ORDERED WBC (4.8 - 10.8 /CUMM) 16.0 H RBC (4.70 - 6.10 /CUMM) 5.34 Hgb (14.0 - 18.0 G/DL) 15.4 Hct (42 - 52 %) 47.2 MCV (80.0 - 94.0 FL) 88.4 MCH (27.0 - 31.0 PG) 28.9 RDW (11.5 - 14.5 %) 16.2 H Plt Count (/CUMM) Gran % (42.2 - 75.2 %) 68.5 Lymphocytes % (20.5 - 51.1 %) 20.6 Monocytes % (1.7 - 9.3 %) 8.7 Eosinophils % (0 - 5 %) 1.0 Basophils % (0.0 - 2.0 %) 1.2 Absolute Granulocytes (1.4 - 6.5 /CUMM) 11.0 H Segmented Neutrophils (42.2 - 75.2 %) 68 Absolute Lymphocytes (1.2 - 3.4 /CUMM) 3.3 Lymphocytes (20.5 - 51.1 %) 23 Monocytes (1.7 - 9.3 %) 8 Absolute Monocytes (0.10 - 0.60 /CUMM) 1.4 H Eosinophils (0 - 5.0 %) 1 Absolute Eosinophils (0.0 - 0.7 /CUMM) 0.2 Absolute Basophils (0.0 - 0.2 /CUMM) 0.2 Normocytic RBCs VERIFIED Normochromic RBCs VERIFIED PUBS MCHC (33.0 - 37.0 G/DL) 32.7 L Imaging/Other Studies: OE-rcfc-hbcgkyyivz-negative- CT-abdomen and nuykfx-wsxqsfofat-kxfxbtcs no documented tumor recurrence Chest s-hjh-meiygio active Assessment/Plan Assessment: 1. Syncopal episodes-I would think this is unlikely referable to underlying malignancy or his previous gemcitabine chemotherapy. Differential diagnosis would include dehydration (in the context of diabetes), sepsis, cardiac event, low suspicion for PE 2. Pancreas cancer-the patient did not go on optimal CAT scan of his abdomen pelvis without contrast. However, no recurrence was noted. Recommend-please draw CA 19-9 if possible, his Port-A-Cath should be flushed Please call if any further issues develop I have discussed this with the patient Recommendations: .. Consult Acknowledgment - Thank you for your consult request.
[2017-03-10 08:00] VITALS: BP 122/78
--- NOTE | 2017-03-10 08:31 | PN- Housestaff ---
See Addendum Subjective Follow-up For: Syncope Tele-Events Since Last Visit: No episodes of arrhythmia noted. Subjective: Pt seen and examined at bedside. He denies any dizziness, shortness of breath, chest pain, palpitation, fever, chills, or any focal neurological deficits. No acute events reported by nursing staff telemetry monitors. Review of Systems Constitutional: Reports: no symptoms. Objective Last 24 Hrs of Vital Signs/I&O Vital Signs Date Time Temp Pulse Resp B/P B/P Pulse O2 O2 Flow FiO2 Mean Ox Delivery Rate 03/10 0800 98.1 64 20 122/78 94 Room Air 03/10 0018 98.7 68 18 128/58 95 Room Air 03/09 2105 99.0 76 16 146/78 96 Room Air 03/09 2058 96 Room Air 03/09 2041 80 18 134/78 95 Room Air 03/09 1837 97.8 89 20 150/85 100 03/09 1615 98 Room Air 03/09 1613 95.0 82 18 135/83 98 Room Air Intake & Output 03/10 1600 03/10 0800 03/10 0000 Intake Total 640 2680 Output Total 650 Balance -10 2680 Intake, IV 400 2200 Intake, Oral 240 480 Number 0 Bowel Movements Output, Urine 650 Patient 71.214 kg Weight Weight Reported by Patient Measurement Method Physical Exam General Appearance: Alert, Oriented X3, Cooperative Other Physical Findings: Skin No Significant Lesion Skin Temp/Moisture Exam: Warm/Dry Sepsis Skin Exam (color): Normal for Ethnicity HEENT Atraumatic, PERRLA, Mucous Membr. moist/pink Neck Supple, No JVD Lymphatic Cervical nl Cardiovascular Regular Rate, Normal S1, Normal S2 Lungs Clear to Auscultation, Normal Air Movement Abdomen Normal Bowel Sounds, Soft, No Tenderness Neurological Normal Gait, Normal Speech, Strength at 5/5 X4 Ext, Normal Tone, Sensation Intact, Cranial Nerves 3-12 NL Extremities No Clubbing, No Cyanosis, No Edema, Normal Pulses Current Medications: Current Medications Sig/Clover Start time Last Medication Dose Route Stop Time Status Admin Acetaminophen 650 MG Q6P PRN 03/09 1915 AC PO Duloxetine HCl 60 MG BID 03/09 2200 AC 03/10 PO 0916 Enoxaparin Sodium 0 .STK-MED ONE 03/09 2044 DC SC Enoxaparin Sodium 40 MG DAILY 03/09 1905 AC 03/10 SC 0917 Ezetimibe 10 MG DAILY 03/10 1000 AC 03/10 PO 0916 Gemfibrozil 600 MG BID 03/09 2200 AC 03/10 PO 0916 Ibuprofen 600 MG Q6P PRN 03/09 1915 AC PO Insulin Aspart 0 TIDAC/HS 03/10 1700 AC SC Insulin Aspart 16 UNITS ONCE ONE 03/10 1315 DC 03/10 SC 03/10 1316 1338 Insulin Aspart 0 TIDAC 03/10 0800 DC 03/10 SC 0916 Insulin Detemir 36 UNITS BID 03/10 2200 AC SC Insulin Detemir 30 UNITS BID 03/09 2200 DC 03/10 SC 0917 Omeprazole 20 MG BID 03/09 2200 AC 03/10 PO 0916 Oxycodone HCl 15 MG BID 03/09 2200 AC 03/10 PO 0917 Oxycodone/ 1 TAB Q6P PRN 03/09 191 AC 03/10 Acetaminophen PO 0640 Patient Medication 1 ED .STK-MED ONE 03/10 1431 OH Teaching ED 03/10 1432 Pravastatin Sodium 40 MG 1700 03/10 1700 AC PO Sodium Chloride 1,000 ML Q20H 03/09 1945 DC 03/09 IV 03/10 0904 2113 Sodium Chloride 1,000 ML BOLUS ONE 03/09 1630 DC 03/09 IV 03/09 1729 1651 Sodium Chloride 1,000 ML BOLUS ONE 03/09 1445 DC 03/09 IV 03/09 1544 1458 Last 24 Hrs of Lab/Pro Results Last 24 Hrs of Labs/Mics: Laboratory Tests 03/10/17 0630: Anion Gap 10, Estimated GFR > 60, BUN/Creatinine Ratio 21.4, Hemoglobin A1c 11.9 H, Triglycerides 176 H, Cholesterol 141, LDL Cholesterol, Calc 56 L, HDL Cholesterol 50, Cholesterol/HDL Ratio 3, TSH 1.380, Free T4 1.25, CBC w Diff Pending, WBC Pending, RBC Pending, Hgb Pending, Hct Pending, MCV Pending, MCH Pending, RDW Pending, Plt Count Pending, MPV Pending, PUBS MCHC Pending 03/10/17 0600: CA 19-9 Antigen Pending 03/09/17 2350: Troponin I < 0.01 05/17/17 2031: Lactic Acid 0.9, D-Dimer < 200 03/09/171930: Urinalysis LIGHT H, Urine Color YEL, Urine Clarity CLEAR, Urine pH 6.0, Ur Specific [place] 1.020, Urine Protein TRACE H, Urine Ketones TRACE H, Urine Nitrite NEG, Urine Bilirubin NEG, Urine Urobilinogen 0.2, Ur Leukocyte Esterase NEG, Ur Microscopic SEDIMENT EXAMINED, Urine Hemoglobin NEG, Urine Glucose NEG 03/09/17 160: Lactic Acid 2.3 H 03/09/17 160: Anion Gap 13, Estimated GFR > 60, BUN/Creatinine Ratio 26.3 H, Glucose 147 H, Calcium 9.8, Total Bilirubin 0.5, AST 14 L, ALT 20 L, Alkaline Phosphatase 101 , Total Protein 6.2 L, Albumin 3.8, Globulin 2.4, Albumin/Globulin Ratio 1.6 Microbiology 03/10 630 BLOOD: Blood Culture - RECD 03/09 1931 URINE ROUT: Urine Culture - RECD 03/09 1915 LOWER RESP: Respiratory Culture - CAN Cancelled: SPECIMEN NOT RECEIVED IN LABORATORY 03/09 1915 LOWER RESP: Gram Stain - CAN Cancelled: SPECIMEN NOT RECEIVED IN LABORATORY 03/09 1915 BLOOD: Blood Culture - CAN Cancelled: SPECIMEN NOT RECEIVED IN LABORATORY Assessment/Plan Assessment: This is a 66-year-old gentleman with a significant focal history of pancreatic cancer, diabetes hypertension, hyperlipidemia, diabetes, who presents for evaluation after having a syncopal episode. Patient seemed to have experienced a prodromal symptom of faded vision and some dizziness. While at the ED, he is noted to have borderline low blood pressure with systolic of 95 and tachycardic, requiring 2 L boluses of normal saline with appropriate correction noted. Orthostatics obtain were also positivelying 153/89 and on standing dropped down to 120/80 mmHg. patient labs also remarkable for leukocytosis the white blood count of 16 and an elevated lactic acid 2.3. Impression * Syncope. Initially presented with positive orthostatics which is now corrected after IV hydration. Most likely etiology of patient's syncope was secondary orthostatic hypotension from dehydration. Vasovagal syncope is also a possible explanation as patient's seems to have premonition before the syncopal event. We'll continue IV hydration and have patient wear compression stockings and monitor for any symptoms while ambulating. Patient is expected to be discharged. * Leukocytosis and meeting SIRS criteria (elevated WBC and tachycardia). Reactive versus infectious. Patient has leukocytosis and presented with tachycardia. Chest x-ray is unremarkable for any acute infectious pathology. Patient denied any abdominal pain or dysuria or any recent sick contacts. The tachycardia could be most likely from dehydration rather than an infection source. * Metabolic acidosis with non-elevated gap. Patient does have elevated lactic acid and decreased bicarbonate. Possible etiologies include infection. Medications such as patient's metformin Could be responsible for the metabolic acidosis * History of hyperlipidemia * History of diabetes * History of anxiety and depression * History of pancreatic cancer with pancreatectomy and chemotherapy Problem List: 1. Syncope Pain Ratin Pain Location: none Pain Goal: Remain pain free Pain Plan: none Tomorrow's Labs & Rationales: none-discharged
--- NOTE | 2017-03-10 10:06 | Cons- Cardiology ---
General Information and HPI Consulting Request Date of Consult: 03/10/17 Requested By: SABINO ALVAREZ MD Reason for Consult: Syncopal episode Source of Information: patient, old records Exam Limitations: no limitations History of Present Illness: This is a 66-year-old very pleasant gentleman with a past medical history of hypertension, hyperlipidemia, recent diagnosis of pancreatic cancer in 2015 requiring up pancreectomy and splenectomy in April 2016, status post chemotherapy last treatment in December 2016, insulin-dependent diabetes, presents for evaluation of a syncopal event. Patient reports that today while at his normal state of health and while seated on his couch, he started feeling warmth on his face and decided to get up to go get some water to flush his face. He reports that when he immediately stood up. he felt dizzy and the next thing he remembers was that he was back on the couch. This episode was witnessed by his spouse who reports that patient stood up and fell back on the couch,losing consciousness for about few seconds. Patient is reported to have not had any postictal confusion when he regained consciousness, no seizure-like activity, no tongue biting, no urinary or bladder incontinence. The patient himself reports that prior to this episode he did not have any chest pain, palpitation, vertigo, or headaches. A short while after the syncopal episode, pt's blood glucose was checked by spouse and found to be in the mid 200s. During the past week, patient is reported to have been more tired than usual however denies any fever, chills, recent infection, sick contacts, cough, hemoptysis, recent travel, decreased oral intake, nausea, vomiting, any focal neurological deficit, abdominal pain ,diarrhea, or dysuria. Office records reviewed.Patient saw me in 04/2016 for pre op cardiac claearnce for pancreatic tumor resection. He had an Echo which showed normal LV systolic function. No significant Valvular abnormalities. Nuclear stress test was turned down. Surgery was done and uncomplicated. Since surgery he has lost 70 lbs. Above syncopal episode occured once before standing at the sinl. He has had premonition both times prior to syncope. He has not been active after surgery and chemotherapy. Essentially lays on the couch. Tends not to consume water. No chest pain or unusual shortness of breath.Known Diabetic and cigarette smoker. Allergies/Medications Allergies: Coded Allergies: NO KNOWN ALLERGIES (07/22/16) Home Med List: Duloxetine HCl 60 MG CAPSULE. 1 CAP PO BID DEPRESSION (Reported) Ezetimibe (Zetia) 10 MG TABLET 1 TAB PO DAILY CHOLESTEROL (Reported) Gemfibrozil 600 MG TABLET 1 TAB PO BID CHOLESTEROL (Reported) Insulin Aspart (Novolog) (Unknown Strength) VIAL (Unknown Dose) SC SEE SLIDING SCALE DIABETES (Reported) Insulin Detemir (Levemir) 100 UNIT/1 ML VIAL 60 UNITS SC BID DIABETES ( Reported) Metformin HCl 500 MG TABLET 1 TAB PO BID DIABETES (Reported) Omeprazole 20 MG CAPSULE. 1 CAP PO BID GI (Reported) Oxycodone HCl 15 MG TABLET 1 TAB PO BIDP PRN PAIN (Reported) Pravastatin Sodium 40 MG TABLET 1 TAB PO DAILY CHOLESTEROL (Reported) Current Medications: Current Medications Sig/Cl[place] Start time Last Medication Dose Route Stop Time Status Admin Acetaminophen 650 MG Q6P PRN 03/09 1915 AC PO Duloxetine HCl 60 MG BID 03/09 2200 AC 03/10 PO 0916 Enoxaparin Sodium 0 .STK-MED ONE 03/09 2044 DC SC Enoxaparin Sodium 40 MG DAILY 03/09 1905 AC 03/10 SC 0917 Ezetimibe 10 MG DAILY 03/10 1000 AC 03/10 PO 0916 Gemfibrozil 600 MG BID 03/09 2200 AC 03/10 PO 0916 Ibuprofen 600 MG Q6P PRN 03/09 1915 AC PO Insulin Aspart 0 TIDAC 03/10 0800 AC 03/10 SC 0916 Insulin Detemir 30 UNITS BID 03/09 2200 AC 03/10 SC 0917 Omeprazole 20 MG BID 03/09 2200 AC 03/10 PO 0916 Oxycodone HCl 15 MG BID 03/09 2200 AC 03/10 PO 0917 Oxycodone/ 1 TAB Q6P PRN 03/09 191 AC 03/10 Acetaminophen PO 0640 Pravastatin Sodium 40 MG 1700 03/10 1700 AC PO Sodium Chloride 1,000 ML Q20H 03/09 1945 AC 03/09 IV 2113 Sodium Chloride 1,000 ML BOLUS ONE 03/09 1630 DC 03/09 IV 03/09 1729 1651 Sodium Chloride 1,000 ML BOLUS ONE 03/09 1445 DC 03/09 IV 03/09 1544 1458 Review of Systems Review of Systems Constitutional: Reports: see HPI. EENTM: Denies: see HPI. Cardiovascular: Denies: no symptoms. Respiratory: Denies: no symptoms. GI: Reports: see HPI. Genitourinary: Denies: no symptoms. Musculoskeletal: Denies: no symptoms. Skin: Denies: no symptoms. Neurological/Psychological: Denies: no symptoms. Hematologic/Endocrine: Denies: no symptoms. 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 Home Smoking Status: Current Everyday Smoker ECHO Results (as available) EF% 60 Exam & Diagnostic Data Vital Signs and I&O Vital Signs Date Time Temp Pulse Resp B/P B/P Pulse O2 O2 Flow FiO2 Mean Ox Delivery Rate 03/10 08 98.1 64 20 122/78 94 Room Air 03/10 0018 98.7 68 18 128/58 95 Room Air 03/09 2105 99.0 76 16 146/78 96 Room Air 03/09 2058 96 Room Air 03/09 2041 80 18 134/78 95 Room Air 03/09 1837 97.8 89 20 150/85 100 03/09 1615 98 Room Air 03/09 1613 95.0 82 18 135/83 98 Room Air 03/09 1406 96.5 121 16 95/69 96 Room Air Intake & Output 03/10 1600 03/10 0800 03/10 0000 03/09 1600 03/09 0800 03/09 0000 Intake Total 640 2680 Output Total 650 Balance -10 2680 Intake, IV 400 2200 Intake, Oral 240 480 Number 0 Bowel Movements Output, Urine 650 Patient 157 lb 120 lb Weight Weight Reported by Patient Reported by Patient Measurement Method Physical Exam: Patient appeared comfortable laying in bed Head normocephalic atraumatic Eyes sclera anicteric conjunctiva showed no pallor extraocular muscles were normal Chest lungs were clear bilaterally Heart regular rhythm without murmurs. S2 is physiologically split Abdomen soft, scar of surgery was noted. Nontender Extremities no clubbing cyanosis or edema Neurological no gross motor or sensory deficits Labs/Pro Results: Laboratory Tests 03/10 03/10 03/09 03/09 0630 0600 2350 2031 Chemistry Sodium (137 - 145 mmol/L) 138 Potassium (3.5 - 5.1 mmol/L) 4.4 Chloride (98 - 107 mmol/L) 104 Carbon Dioxide (22 - 30 mmol/L) 24 Anion Gap (5 - 16) 10 BUN (9 - 20 mg/dL) 15 Creatinine (0.7 - 1.2 mg/dL) 0.7 Estimated GFR (>60 ml/min) > 60 BUN/Creatinine Ratio (7 - 25 %) 21.4 Hemoglobin A1c (4.2 - 5.8 %) 11.9 H Lactic Acid (0.7 - 2.1 mmol/L) 0.9 Troponin I (<0.11 ng/ml) < 0.01 Triglycerides (<150 mg/dL) 176 H Cholesterol (< 200 MG/DL) 141 LDL Cholesterol, Calc (65 - 129 mg/dL) 56 L HDL Cholesterol (40 - 60 mg/dL) 50 Cholesterol/HDL Ratio (0.00 - 4.88 %) 3 CA 19-9 Antigen Pending TSH (0.270 - 4.200 uIU/mL) 1.380 Free T4 (0.78 - 2.44 ng/dL) 1.25 Coagulation D-Dimer (70 - 232 ng/ml) < 200 Hematology CBC w Diff Pending WBC Pending RBC Pending Hgb Pending Hct Pending MCV Pending MCH Pending RDW Pending Plt Count Pending MPV Pending PUBS MCHC Pending 03/09 03/09 03/09 1931 1607 1607 Chemistry Sodium (137 - 145 mmol/L) 139 Potassium (3.5 - 5.1 mmol/L) 4.5 Chloride (98 - 107 mmol/L) 106 Carbon Dioxide (22 - 30 mmol/L) 19 L Anion Gap (5 - 16) 13 BUN (9 - 20 mg/dL) 21 H Creatinine (0.7 - 1.2 mg/dL) 0.8 Estimated GFR (>60 ml/min) > 60 BUN/Creatinine Ratio (7 - 25 %) 26.3 H Glucose (65 - 99 mg/dL) 147 H Lactic Acid (0.7 - 2.1 mmol/L) 2.3 H Calcium (8.4 - 10.2 mg/dL) 9.8 Total Bilirubin (0.2 - 1.3 mg/dL) 0.5 AST (17 - 59 U/L) 14 L ALT (21 - 72 U/L) 20 L Alkaline Phosphatase (< 127 U/L) 101 Total Protein (6.3 - 8.2 g/dL) 6.2 L Albumin (3.5 - 5.0 g/dL) 3.8 Globulin (1.9 - 4.2 gm/dL) 2.4 Albumin/Globulin Ratio (1.1 - 2.2 %) 1.6 Urines Urinalysis LIGHT H Urine Color (YEL,AMB,STR) YEL Urine Clarity (CLEAR) CLEAR Urine pH (5.0 - 8.0) 6.0 Ur Specific [place] (1.001 - 1.035) 1.020 Urine Protein (NEG,<30 MG/DL) TRACE H Urine Ketones (NEG) TRACE H Urine Nitrite (NEG) NEG Urine Bilirubin (NEG) NEG Urine Urobilinogen (0.1 - 1.0 EU/dl) 0.2 Ur Leukocyte Esterase (NEG) NEG Ur Microscopic SEDIMENT EXAMINED Urine Hemoglobin (NEG) NEG Urine Glucose (N MG/DL) NEG 03/09 1454 Coagulation PT (9.4 - 12.5 SEC) 9.9 INR (0.90 - 1.17) 0.94 APTT (25 - 37 SEC) 22 L Hematology CBC w Diff MAN DIFF ORDERED WBC (4.8 - 10.8 /CUMM) 16.0 H RBC (4.70 - 6.10 /CUMM) 5.34 Hgb (14.0 - 18.0 G/DL) 15.4 Hct (42 - 52 %) 47.2 MCV (80.0 - 94.0 FL) 88.4 MCH (27.0 - 31.0 PG) 28.9 RDW (11.5 - 14.5 %) 16.2 H Plt Count (/CUMM) Gran % (42.2 - 75.2 %) 68.5 Lymphocytes % (20.5 - 51.1 %) 20.6 Monocytes % (1.7 - 9.3 %) 8.7 Eosinophils % (0 - 5 %) 1.0 Basophils % (0.0 - 2.0 %) 1.2 Absolute Granulocytes (1.4 - 6.5 /CUMM) 11.0 H Segmented Neutrophils (42.2 - 75.2 %) 68 Absolute Lymphocytes (1.2 - 3.4 /CUMM) 3.3 Lymphocytes (20.5 - 51.1 %) 23 Monocytes (1.7 - 9.3 %) 8 Absolute Monocytes (0.10 - 0.60 /CUMM) 1.4 H Eosinophils (0 - 5.0 %) 1 Absolute Eosinophils (0.0 - 0.7 /CUMM) 0.2 Absolute Basophils (0.0 - 0.2 /CUMM) 0.2 Normocytic RBCs VERIFIED Normochromic RBCs VERIFIED PUBS MCHC (33.0 - 37.0 G/DL) 32.7 L Diagnostic Data EKG Results Sinus rhythm with left axis deviation CXR Results IMPRESSION: Slightly limited examination as the last costophrenic angle is outside the [id number] the exam. Otherwise no acute disease Assessment/Plan Assessment/Plan In summary this 66-year-old gentleman was admitted with syncope. I suspect his syncope is vasovagal. He probably was dehydrated. He always has a premonition. His electrocardiogram shows no acute changes and his echocardiogram as recently as 2016 revealed normal left ventricular systolic function. #2. History of pancreatic cancer and pancreatic surgery and splenectomy. A 70 pound weight loss since surgery. #3. Diabetes mellitus #4. Cigarette smoker I would suggest that he previously hydrate. Compression stockings 15 or 20 pounds is suggested. I've told him to avoid standing and then he gets his premonition that he should use some isometric exercises which I instructed him with. He was told to keep himself well-hydrated. Certainly pulmonary embolism could be considered since the d-dimer is negative his electrocardiogram shows sinus rhythm with normal rate is oxygen saturations are good and he had clearly premonition and this occurred on 2 occasions I suspect that his etiology of his syncope was vasovagal. After he is discharged I would suggest that he make an appointment with our office for nuclear stress test. Cigarette smoking cessation was suggested as well. Consult Acknowledgment - Thank you for your consult request.
--- NOTE | 2017-03-10 12:53 | Cons- Endocrinology ---
General Information and HPI Consulting Request Date of Consult: 03/10/17 Requested By: Medical team Reason for Consult: management of DM. Source of Information: patient, family, old records Exam Limitations: no limitations History of Present Illness: 66-year-old gentleman with a past medical history of hypertension, hyperlipidemia, pancreatic cancer s/p pancreectomy and splenectomy in April 2016 , status post chemotherapy( last treatment was in December 2016), was admitted after he had an syncopal event. At home, he was on Levemir 60 units twice a day and Novolog between 20 and 30 units before meals.In addition, he was on metformin 500 mg twice a day. His HbA1c is 11.9%. In hospital, he was put on Levemir 30 units twice a day, Novolog coverage before meals. His FSGs were 183, 361, 345, 185 and 296. As per , his appetite started getting better today. He finished whole lunch. Allergies/Medications Allergies: Coded Allergies: NO KNOWN ALLERGIES (07/22/16) Home Med List: Duloxetine HCl 60 MG CAPSULE.DR 1 CAP PO BID DEPRESSION (Reported) Ezetimibe (Zetia) 10 MG TABLET 1 TAB PO DAILY CHOLESTEROL (Reported) Gemfibrozil 600 MG TABLET 1 TAB PO BID CHOLESTEROL (Reported) Insulin Aspart (Novolog) (Unknown Strength) VIAL (Unknown Dose) SC SEE SLIDING SCALE DIABETES (Reported) Insulin Detemir (Levemir) 100 UNIT/1 ML VIAL 60 UNITS SC BID DIABETES ( Reported) Metformin HCl 500 MG TABLET 1 TAB PO BID DIABETES (Reported) Omeprazole 20 MG CAPSULE.DR 1 CAP PO BID GI (Reported) Oxycodone HCl 15 MG TABLET 1 TAB PO BIDP PRN PAIN (Reported) Pravastatin Sodium 40 MG TABLET 1 TAB PO DAILY CHOLESTEROL (Reported) Review of Systems Review of Systems Constitutional: Reports: see HPI. Cardiovascular: Denies: chest pain. Respiratory: Denies: short of breath. GI: Denies: abdominal pain. Genitourinary: Denies: dysuria. Hematologic/Endocrine: Denies: polyuria, polydipsia. 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 Home Smoking Status: Current Everyday Smoker ECHO Results (as available) EF% 60 Exam & Diagnostic Data Last 24 Hrs of Vital Signs/I&O Vital Signs Date Time Temp Pulse Resp B/P B/P Pulse O2 O2 Flow FiO2 Mean Ox Delivery Rate 03/10 0800 98.1 64 20 122/78 94 Room Air 03/10 0018 98.7 68 18 128/58 95 Room Air 03/09 2105 99.0 76 16 146/78 96 Room Air 03/09 2058 96 Room Air 03/09 2041 80 18 134/78 95 Room Air 03/09 1837 97.8 89 20 150/85 100 03/09 1615 98 Room Air 03/09 1613 95.0 82 18 135/83 98 Room Air 03/09 1406 96.5 121 16 95/69 96 Room Air Intake & Output 03/10 1600 03/10 0800 03/10 0000 Intake Total 640 2680 Output Total 650 Balance -10 2680 Intake, IV 400 2200 Intake, Oral 240 480 Number 0 Bowel Movements Output, Urine 650 Patient 157 lb Weight Weight Reported by Patient Measurement Method Physical Exam General Appearance: no apparent distress Neck: normal inspection Respiratory: decreased breath sounds Cardiovascular: regular rate/rhythm Gastrointestinal: soft, non-tender Extremities: no edema Labs/Pro Results: Laboratory Tests 03/10 03/10 03/09 03/09 0630 0600 2349 2030 Chemistry Sodium (137 - 145 mmol/L) 138 Potassium (3.5 - 5.1 mmol/L) 4.4 Chloride (98 - 107 mmol/L) 104 Carbon Dioxide (22 - 30 mmol/L) 24 Anion Gap (5 - 16) 10 BUN (9 - 20 mg/dL) 15 Creatinine (0.7 - 1.2 mg/dL) 0.7 Estimated GFR (>60 ml/min) > 60 BUN/Creatinine Ratio (7 - 25 %) 21.4 Hemoglobin A1c (4.2 - 5.8 %) 11.9 H Lactic Acid (0.7 - 2.1 mmol/L) 0.9 Troponin I (<0.11 ng/ml) < 0.01 Triglycerides (<150 mg/dL) 176 H Cholesterol (< 200 MG/DL) 141 LDL Cholesterol, Calc (65 - 129 mg/dL) 56 L HDL Cholesterol (40 - 60 mg/dL) 50 Cholesterol/HDL Ratio (0.00 - 4.88 %) 3 CA 19-9 Antigen Pending TSH (0.270 - 4.200 uIU/mL) 1.380 Free T4 (0.78 - 2.44 ng/dL) 1.25 Coagulation D-Dimer (70 - 232 ng/ml) < 200 Hematology CBC w Diff Pending WBC Pending RBC Pending Hgb Pending Hct Pending MCV Pending MCH Pending RDW Pending Plt Count Pending MPV Pending PUBS MCHC Pending 03/09 03/09 03/09 1931 1607 1607 Chemistry Sodium (137 - 145 mmol/L) 139 Potassium (3.5 - 5.1 mmol/L) 4.5 Chloride (98 - 107 mmol/L) 106 Carbon Dioxide (22 - 30 mmol/L) 19 L Anion Gap (5 - 16) 13 BUN (9 - 20 mg/dL) 21 H Creatinine (0.7 - 1.2 mg/dL) 0.8 Estimated GFR (>60 ml/min) > 60 BUN/Creatinine Ratio (7 - 25 %) 26.3 H Glucose (65 - 99 mg/dL) 147 H Lactic Acid (0.7 - 2.1 mmol/L) 2.3 H Calcium (8.4 - 10.2 mg/dL) 9.8 Total Bilirubin (0.2 - 1.3 mg/dL) 0.5 AST (17 - 59 U/L) 14 L ALT (21 - 72 U/L) 20 L Alkaline Phosphatase (< 127 U/L) 101 Total Protein (6.3 - 8.2 g/dL) 6.2 L Albumin (3.5 - 5.0 g/dL) 3.8 Globulin (1.9 - 4.2 gm/dL) 2.4 Albumin/Globulin Ratio (1.1 - 2.2 %) 1.6 Urines Urinalysis LIGHT H Urine Color (YEL,AMB,STR) YEL Urine Clarity (CLEAR) CLEAR Urine pH (5.0 - 8.0) 6.0 Ur Specific [place] (1.001 - 1.035) 1.020 Urine Protein (NEG,<30 MG/DL) TRACE H Urine Ketones (NEG) TRACE H Urine Nitrite (NEG) NEG Urine Bilirubin (NEG) NEG Urine Urobilinogen (0.1 - 1.0 EU/dl) 0.2 Ur Leukocyte Esterase (NEG) NEG Ur Microscopic SEDIMENT EXAMINED Urine Hemoglobin (NEG) NEG Urine Glucose (N MG/DL) NEG 03/09 1454 Coagulation PT (9.4 - 12.5 SEC) 9.9 INR (0.90 - 1.17) 0.94 APTT (25 - 37 SEC) 22 L Hematology CBC w Diff MAN DIFF ORDERED WBC (4.8 - 10.8 /CUMM) 16.0 H RBC (4.70 - 6.10 /CUMM) 5.34 Hgb (14.0 - 18.0 G/DL) 15.4 Hct (42 - 52 %) 47.2 MCV (80.0 - 94.0 FL) 88.4 MCH (27.0 - 31.0 PG) 28.9 RDW (11.5 - 14.5 %) 16.2 H Plt Count (/CUMM) Gran % (42.2 - 75.2 %) 68.5 Lymphocytes % (20.5 - 51.1 %) 20.6 Monocytes % (1.7 - 9.3 %) 8.7 Eosinophils % (0 - 5 %) 1.0 Basophils % (0.0 - 2.0 %) 1.2 Absolute Granulocytes (1.4 - 6.5 /CUMM) 11.0 H Segmented Neutrophils (42.2 - 75.2 %) 68 Absolute Lymphocytes (1.2 - 3.4 /CUMM) 3.3 Lymphocytes (20.5 - 51.1 %) 23 Monocytes (1.7 - 9.3 %) 8 Absolute Monocytes (0.10 - 0.60 /CUMM) 1.4 H Eosinophils (0 - 5.0 %) 1 Absolute Eosinophils (0.0 - 0.7 /CUMM) 0.2 Absolute Basophils (0.0 - 0.2 /CUMM) 0.2 Normocytic RBCs VERIFIED Normochromic RBCs VERIFIED PUBS MCHC (33.0 - 37.0 G/DL) 32.7 L Assessment/Plan Assessment/Plan 66-year-old gentleman with a past medical history of hypertension, hyperlipidemia, pancreatic cancer s/p pancreectomy and splenectomy in April 2016 , status post chemotherapy( last treatment was in December 2016), was admitted after he had an syncopal event. His DM is not controlled with HbA1c of 11.9%. Plan: 1. request nutrition consult; 2. increase Levemir to 36 units twice a day; 3. adjust Novolog coverage before meals and add Novolog coverage at bedtime; detail see the inpatient DM orders; 4. monitor FSGs. 5. agree with holding off on metformin. will follow. Inpatient Diabetes Orders Before Each Meal: Bolus Insulin: Novolog < 80 mg/dl: no coverage 80-100 mg/dl: 6 units 101-120 mg/dl: 6 units 121-150 mg/dl: 6 units 151-200 mg/dl: 8 units 201-250 mg/dl: 10 units 251-300 mg/dl: 12 units 301-350 mg/dl: 14 units 351-400 mg/dl: 16 units > 400 mg/dl: 18 units Bedtime: Bolus Insulin: Novolog < 80 mg/dl: no coverage 80-100 mg/dl: no coverage 101-120 mg/dl: no coverage 121-150 mg/dl: no coverage 151-200 mg/dl: no coverage 201-250 mg/dl: no coverage 251-300 mg/dl: 2 units 301-350 mg/dl: 3 units 351-400 mg/dl: 4 units > 400 mg/dl: 5 units Consult Acknowledgment - Thank you for your consult request.
[2017-03-10 16:11] VITALS: BP 138/70
[2017-03-10 16:46] LABS: ABSOLUTE BASOPHIL COUNT 0.3 /CUMM (0.0-0.2); ABSOLUTE EOSINOPHIL COUNT 0.1 /CUMM (0.0-0.7); ABSOLUTE GRANULOCYTE CT 4.4 /CUMM (1.4-6.5); ABSOLUTE LYMPH COUNT 4.3 /CUMM (1.2-3.4); ABSOLUTE MONOCYTE COUNT 1.1 /CUMM (0.10-0.60); BASOPHIL % 2.8 % (0.0-2.0); GRANULOCYTE % 43.1 % (42.2-75.2); MEAN CORPUSCULAR HGB 28.8 PG (27.0-31.0); MEAN CORPUSCULAR HGB CONC 32.2 G/DL (33.0-37.0); MEAN CORPUSCULAR VOLUME 89.2 FL (80.0-94.0); MEAN PLATELET VOLUME 11.8 FL (7.4-10.4); RBC DISTRIBUTION WIDTH 15.9 % (11.5-14.5); RED BLOOD CELL CT 4.46 /CUMM (4.70-6.10); WHITE BLOOD CELL COUNT 10.2 /CUMM (4.8-10.8)
[2017-03-10 16:48] LABS: HEMATOCRIT 39.8 % (42-52)
[2017-03-10 17:07] LABS: PLATELET COUNT 261 /CUMM (130-400)
[2017-03-10 23:40] VITALS: BP 110/70
[2017-03-11 08:00] VITALS: BP 122/60
--- NOTE | 2017-03-11 08:24 | PN- Diabetes ---
Assessment/Plan Assessment: 66-year-old gentleman with a past medical history of hypertension, hyperlipidemia, pancreatic cancer s/p pancreectomy and splenectomy in April 2016 , status post chemotherapy( last treatment was in December 2016), was admitted after he had an syncopal event. His DM is not controlled with HbA1c of 11.9%. He was put on Levemir 36 units twice a day, Novolog coverage before meals was adjusted. In addition, he is on Novolog coverage at bedtime. His FSGs were 267, 68, 57, and 142. Last night after dinner, his glucose level was down to 57. Levemir at bedtime was held. Plan: 1. decrease Levemir to 25 units twice a day; 2. adjust Novolog coverage before meals-- detail see the inpatient DM order; 3. continue the current Novolog coverage at bedtime; 4. recommend having snack at bedtime if FSG is < 150 at bedtime 5. monitor FSGs 6. if patient is medically stable for discharge, he will go home on today's insulin regimen. Metformin can be discontinued. 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 7. f/u in office after discharge. Inpatient Diabetes Orders Before Each Meal: Bolus Insulin: Novolog < 80 mg/dl: no coverage 80-100 mg/dl: 6 units 101-120 mg/dl: 6 units 121-150 mg/dl: 6 units 151-200 mg/dl: 8 units 201-250 mg/dl: 9 units 251-300 mg/dl: 10 units 301-350 mg/dl: 11 units 351-400 mg/dl: 12 units > 400 mg/dl: 13 units Subjective Subjective: Patient feels well this morning. Objective Last 24 Hrs of Vital Signs/I&O Vital Signs Date Time Temp Pulse Resp B/P B/P Pulse O2 O2 Flow FiO2 Mean Ox Delivery Rate 03/10 2340 98.9 72 20 110/70 96 Room Air 03/10 1611 98.7 77 20 138/70 94 Room Air Intake & Output 03/11 1600 03/11 0800 03/11 0000 Intake Total 750 Output Total Balance 750 Intake, Oral 750 Findings Pertinent Lab/Pro Results: Laboratory Tests 03/10 1605 Hematology WBC (4.8 - 10.8 /CUMM) 10.2 RBC (4.70 - 6.10 /CUMM) 4.46 L Hgb (14.0 - 18.0 G/DL) 12.8 L Hct (42 - 52 %) 39.8 L MCV (80.0 - 94.0 FL) 89.2 MCH (27.0 - 31.0 PG) 28.8 RDW (11.5 - 14.5 %) 15.9 H Plt Count (130 - 400 /CUMM) 261 MPV (7.4 - 10.4 FL) 11.8 H Gran % (42.2 - 75.2 %) 43.1 Lymphocytes % (20.5 - 51.1 %) 41.9 Monocytes % (1.7 - 9.3 %) 11.2 H Eosinophils % (0 - 5 %) 1.0 Basophils % (0.0 - 2.0 %) 2.8 H Absolute Granulocytes (1.4 - 6.5 /CUMM) 4.4 Absolute Lymphocytes (1.2 - 3.4 /CUMM) 4.3 H Absolute Monocytes (0.10 - 0.60 /CUMM) 1.1 H Absolute Eosinophils (0.0 - 0.7 /CUMM) 0.1 Absolute Basophils (0.0 - 0.2 /CUMM) 0.3 PUBS MCHC (33.0 - 37.0 G/DL) 32.2 L
--- NOTE | 2017-03-11 08:38 | PN- Housestaff ---
See Addendum Subjective Follow-up For: syncope Tele-Events Since Last Visit: Of telemetry Subjective: Seen and examined at bedside. He does not endorse any acute complaints including syncope, dizziness, chest pain, palpitation, shortness of breath, fever, chills, nausea, vomiting, abdominal pain, any new focal neurological deficit, or dysuria. Patient ambulated with is yesterday with no reports of dizziness. Episode of nocturnal hypoglycemia noted with adequate correction by oral intake. Review of Systems Constitutional: Reports: no symptoms. Objective Last 24 Hrs of Vital Signs/I&O Vital Signs Date Time Temp Pulse Resp B/P B/P Pulse O2 O2 Flow FiO2 Mean Ox Delivery Rate 03/11 08 98.3 78 20 122/60 97 Room Air 03/10 2340 98.9 72 20 110/70 96 Room Air 03/10 1611 98.7 77 20 138/70 94 Room Air Intake & Output 03/11 1600 03/11 0800 03/11 0000 Intake Total 750 Output Total Balance 750 Intake, Oral 750 Patient 71.214 kg Weight Physical Exam General Appearance: Alert, Oriented X3, Cooperative Lungs: Clear to Auscultation, Normal Air Movement Assessment/Plan Assessment: This is a 66-year-old gentleman with a significant focal history of pancreatic cancer, diabetes hypertension, hyperlipidemia, diabetes, who presents for evaluation after having a syncopal episode. Patient seemed to have experienced a prodromal symptom of faded vision and some dizziness. While at the ED, he is noted to have borderline low blood pressure with systolic of 95 and tachycardic, requiring 2 L boluses of normal saline with appropriate correction noted. Orthostatics obtain were also positivelying 153/89 and on standing dropped down to 120/80 mmHg. patient labs also remarkable for leukocytosis the white blood count of 16 and an elevated lactic acid 2.3. Impression and Plan Post syncope. Etiology is believed to be vasovagal versus orthostatic hypotension. Noreported recurrence whle in the hospital, telemetry was unremarkable for any arrhythmias. Cleared by cardiology for discharge with instructions to follow-up within one week with a possible stress test to be done in an outpatient basis. Patient given compression stockings to use and also counseled on adequate fluid intake and exercise for orthostatic hypotension. Regarding his hypoglycemic episode endocrine recommendations of decreasing insulin regimen was followed (levemir 25 units twice a day and low scale NovoLog ). His metformin was discontinued.Pt was also seen by nutrition and given recommendations. Regarding lactic acidosis and leukocytosis, etiology was most likely reactive, patient never developed a fever and his WBC and lactic acid down trended to normal levels. Patient is stable for discharge today. Problem List: 1. Syncope Pain Ratin Pain Location: none Pain Goal: Remain pain free Pain Plan: pain pathway Tomorrow's Labs & Rationales: noen-discharge
--- NOTE | 2017-03-11 08:48 | Patient Discharge Instructions ---
Discharge Instructions General Discharge Information You were seen/treated for: syncope Special Instructions: Please follow up with your PCP within 1 week Please drink enough fluids daily Please folow up with Dr Lawrence (internet architect) within 1 week (you may need a stress test) Please seek medical attention if you develop more episodes of passing out. Please stop taking metformin and use the Levemir and Novolog (Prescriptions provided) Please have a bedtime snack if your sugars at bedtime are below 150 (15-20 grams of a snack with complex carbohydrate and protein is ideal). Please follow up with Dr Roy (endocrine) within 1 week Acute Coronary Syndrome Inclusion Criteria At DC or during hospital stay patient has or had the following: ACS DIAGNOSIS No Discharge Core Measures Meds if any: Prescribed or Continued at Discharge Meds if any: NOT Prescribed or Continued at Discharge Congestive Heart Failure Inclusion Criteria At DC or during hospital stay patient has or had the following: CHF DIAGNOSIS No Discharge Core Measures Meds if any: Prescribed or Continued at Discharge Meds if any: NOT Prescribed or Continued at Discharge Cerebrovascular accident Inclusion Criteria At DC or during hospital stay patient has or had the following: CVA/TIA Diagnosis No Discharge Core Measures Meds if any: Prescribed or Continued at Discharge Meds if any: NOT Prescribed or Continued at Discharge Venous thromboembolism Inclusion Criteria VTE Diagnosis No VTE Type NONE VTE Confirmed by (Test) NONE Discharge Core Measures - Per Current guidelines, there needs to be overlap - treatment for the first 5 days of Warfarin therapy. - If discharged on Warfarin prior to 5 days of - overlap therapy, the patient will need to be - assessed for post discharge needs including - *Post discharge parental anticoagulation - *Warfarin and/or parental anticoagulation education - *Follow up date to check INR post discharge At least 5 days overlap therapy as Inpatient No Meds if any: Prescribed or Continued at Discharge Note: Overlap Therapy is Warfarin and Anticoagulant Meds if any: NOT Prescribed or Continued at Discharge
[2017-03-11] MEDS ORDERED: NOVOLOG100 UNIT/2 SC (09:48)
[2017-03-11] MEDS ORDERED: LEVEMIR100 UNIT/1 SC (09:48)
[2017-03-11] MEDS ORDERED: NOVOLOG FL100 UNIT/1 SC (10:40)
--- NOTE | 2017-03-11 11:29 | PN- Cardiology ---
Subjective Subjective: The patient is awake, alert The events of the last 24 hours as well as telemetry were reviewed. Review of Systems: The review of systems is negative for chest pains, palpitations nor lightheadedness. The remainder of the 14 point review of systems is noncontributory with the exception of above. Objective Vital Signs and I&Os Vital Signs Date Time Temp Pulse Resp B/P B/P Pulse O2 O2 Flow FiO2 Mean Ox Delivery Rate 03/11 0800 98.3 78 20 122/60 97 Room Air 03/10 2340 98.9 72 20 110/70 96 Room Air 03/10 1611 98.7 77 20 138/70 94 Room Air Intake & Output 03/11 1600 03/11 0800 03/11 0000 03/10 1600 03/10 0800 03/10 0000 Intake Total 750 8278 511 6187 Output Total 1050 650 Balance 750 150 -10 2680 Intake, IV 193 450 4188 Intake, Oral 750 1000 240 480 Number 0 Bowel Movements Output, Urine 1050 650 Patient 157 lb 157 lb Weight Weight Reported by Patient Measurement Method Physical Exam: General: Nontoxic, no apparent distress. HEENT: Sclera and conjunctiva within normal limits, without xanthelasmas. Neck: Carotids 2+ without bruits. Respiratory: Clear to auscultation, air movement is good, without accessory respiratory muscle use. Heart: Regular rate and rhythm, without murmurs, without JVD. Abdomen: Soft, nontender, no masses, normoactive bowel sounds. Extremities: Without clubbing, cyanosis, without edema. Neuro: Nonfocal exam, strength, 5 out of 5 Skin: Within normal limits without lesions. Psych: Mood and affect: Normal Current Medications: Current Medications Sig/[place] Start time Last Medication Dose Route Stop Time Status Admin Acetaminophen 650 MG Q6P PRN 03/09 1915 AC PO Duloxetine HCl 60 MG BID 03/09 2200 AC 03/11 PO 1012 Enoxaparin Sodium 40 MG DAILY 03/09 1905 AC 03/11 SC 1013 Ezetimibe 10 MG DAILY 03/10 1000 AC 03/11 PO 1013 Gemfibrozil 600 MG BID 03/09 2200 AC 03/11 PO 1012 Ibuprofen 600 MG Q6P PRN 03/09 1915 AC PO Insulin Aspart 0 TIDAC/HS 03/10 1700 AC 03/11 SC 0819 Insulin Aspart 16 UNITS ONCE ONE 03/10 1315 DC 03/10 SC 03/10 1316 1338 Insulin Aspart 0 TIDAC 03/10 0800 DC 03/10 OH 0916 Insulin Detemir 25 UNITS BID 03/11 1000 AC 03/11 SC 1013 Insulin Detemir 36 UNITS BID 03/10 2200 DC OH Insulin Detemir 30 UNITS BID 03/09 2200 DC 03/10 SC 0917 Omeprazole 20 MG BID 03/09 2200 AC 03/11 PO 1012 Oxycodone HCl 15 MG BID 03/09 2200 AC 03/11 PO 1019 Oxycodone/ 1 TAB Q6P PRN 03/09 1915 AC 03/11 Acetaminophen PO 0746 Patient Medication 1 ED .STK-MED ONE 03/10 1431 MD Teaching ED 03/10 1432 Pravastatin Sodium 40 MG 1700 03/10 1700 03/10 PO 1807 Results Last 48 Hrs of Labs/Mics: Laboratory Tests 03/10/17 1605: RBC 4.46 L, MCV 89.2, MCH 28.8, RDW 15.9 H, MPV 11.8 H, Gran % 43.1, Lymphocytes % 41.9, Monocytes % 11.2 H, Eosinophils % 1.0, Basophils % 2.8 H, Absolute Granulocytes 4.4, Absolute Lymphocytes 4.3 H, Absolute Monocytes 1.1 H, Absolute Eosinophils 0.1, Absolute Basophils 0.3, PUBS MCHC 32.2 L 03/10/17 0630: Anion Gap 10, Estimated GFR > 60, BUN/Creatinine Ratio 21.4, Hemoglobin A1c 11.9 H, Triglycerides 176 H, Cholesterol 141, LDL Cholesterol, Calc 56 L, HDL Cholesterol 50, Cholesterol/HDL Ratio 3, TSH 1.380, Free T4 1.25 03/10/17 0600: CA 19-9 Antigen Pending 03/09/17 2350: Troponin I < 0.01 03/09/172030: Lactic Acid 0.9, D-Dimer < 200 03/09/17 193: Urinalysis LIGHT H, Urine Color YEL, Urine Clarity CLEAR, Urine pH 6.0, Ur Specific [place] 1.020, Urine Protein TRACE H, Urine Ketones TRACE H, Urine Nitrite NEG, Urine Bilirubin NEG, Urine Urobilinogen 0.2, Ur Leukocyte Esterase NEG, Ur Microscopic SEDIMENT EXAMINED, Urine Hemoglobin NEG, Urine Glucose NEG 03/09/17 1607: Lactic Acid 2.3 H 03/09/17 1607: Anion Gap 13, Estimated GFR > 60, BUN/Creatinine Ratio 26.3 H, Glucose 147 H, Calcium 9.8, Total Bilirubin 0.5, AST 14 L, ALT 20 L, Alkaline Phosphatase 101 , Total Protein 6.2 L, Albumin 3.8, Globulin 2.4, Albumin/Globulin Ratio 1.6 03/09/17 1454: PT 9.9, INR 0.94, APTT 22 L, CBC w Diff MAN DIFF ORDERED, RBC 5.34, MCV 88.4, MCH 28.9, RDW 16.2 H, Gran % 68.5, Lymphocytes % 20.6, Monocytes % 8.7, Eosinophils % 1.0, Basophils % 1.2, Absolute Granulocytes 11.0 H, Segmented Neutrophils 68, Absolute Lymphocytes 3.3, Lymphocytes 23, Monocytes 8, Absolute Monocytes 1.4 H, Eosinophils 1, Absolute Eosinophils 0.2, Absolute Basophils 0.2, Normocytic RBCs VERIFIED, Normochromic RBCs VERIFIED, PUBS MCHC 32.7 L Assessment/Plan Assessment/Plan 1. Vasovagal syncope in the setting of dehydration 2. History of pancreatic cancer and pancreatic surgery and splenectomy. A 70 pound weight loss since surgery. 3. Diabetes mellitus 4. Cigarette smoker The patient is overall improved and will be discharged home today. We will follow him as an outpatient with outpatient stress testing next week. Continue telemetry? No
--- NOTE | 2017-03-11 13:24 | Discharge Summary ---
Visit Information Visit Dates Admission Date: 03/09/17 Discharge Date: 03/11/17 Hospital Course Course Attending Physician: ALMA MOBLEY MD Primary Care Physician: BRENDON SAHU,BROOKE Rebollar Hospital Course: This is a 66 yo male with h/o pancreatic cancer (s/p pancreatectomy and splenectomy 05/08 and subsequent chemotherapy with Gemzar completed 01/07), DM2, GERD, and HL who presented in the ED after a syncopal event the same day. The patient spouse witnessed the episode with patient being "out" for only a few seconds (about 5 seconds).No seizure activity noted. He had a similar episode that was mild approximately 1 month ago. Pt did report recent decrease in appetite and fluid intake for several weeks. In the ED was noted to be significantly orthostatic with + lactic acidosis. He denied any nausea, vomiting , abdominal pain or diarrhea. Physical Exam: VS: T 96.5, P 121-89, R 16-20, BP 95/69-150/85, PO 100% RA HEENT: eyes- PERRLA, EOMi julio césar- dry mucosa w/o lesions Neck: no JVD, bruits, adenopathy Chest: clear Cor: RRR (at time of my exam), nl S1, S2 w/o murm Abd: BS+, soft, NT, s/p splenectomy Ext: no edema Neuro: alert & oriented x 3, non-focal Laboratory Tests 03/09/172030: Lactic Acid 0.9, D-Dimer Pending 03/09/17 193: Urinalysis LIGHT H, Urine Color YEL, Urine Clarity CLEAR, Urine pH 6.0, Ur Specific [place] 1.020, Urine Protein TRACE H, Urine Ketones TRACE H, Urine Nitrite NEG, Urine Bilirubin NEG, Urine Urobilinogen 0.2, Ur Leukocyte Esterase NEG, Ur Microscopic SEDIMENT EXAMINED, Urine Hemoglobin NEG, Urine Glucose NEG 03/09/17 1607: Lactic Acid 2.3 H 03/09/17 1607: Anion Gap 13, Estimated GFR > 60, BUN/Creatinine Ratio 26.3 H, Glucose 147 H, Calcium 9.8, Total Bilirubin 0.5, AST 14 L, ALT 20 L, Alkaline Phosphatase 101 , Total Protein 6.2 L, Albumin 3.8, Globulin 2.4, Albumin/Globulin Ratio 1.6 03/09/17 1454: PT 9.9, INR 0.94, APTT 22 L, CBC w Diff MAN DIFF ORDERED, RBC 5.34, MCV 88.4, MCH 28.9, RDW 16.2 H, Gran % 68.5, Lymphocytes % 20.6, Monocytes % 8.7, Eosinophils % 1.0, Basophils % 1.2, Absolute Granulocytes 11.0 H, Segmented Neutrophils 68, Absolute Lymphocytes 3.3, Lymphocytes 23, Monocytes 8, Absolute Monocytes 1.4 H, Eosinophils 1, Absolute Eosinophils 0.2, Absolute Basophils 0.2, Normocytic RBCs VERIFIED, Normochromic RBCs VERIFIED, PUBS MCHC 32.7 L Pt was then admitted to Telemetry floor and spent 3 days before discharged. The following issues were addressed during hospital stay: #Syncope- most likely secondary to orthostatic hypotension as patient was found to be orthostatic positive and he reported decrease fluid intake in the past few weeks. Patient's orthostatics vitals improved status post normal saline IV hydration. Vasovagal was also one of the possible etiology as patient did have a premonition of his face flushing and feeling dizzy prior to the syncopal episode. Cardiology was also consulted who agreed that patient's episode was not of cardiac etiology, recommendation was made for patient to use compression stockings in addition to ensuring adequate hydration well at home. During hospital stay patient did not have any other episode of syncope, and was ambulated post IV hydration with no reported episodes of dizziness or syncope. #Lactic Acidosis/SIRS- Patient presented with elevated WBC, low BP, and lactic acidosis. No clear focal infection as chest x-ray, blood cultures, and repeat CBC following days were all unremarkable. Lactic acid levels were also trended and showed a resolution to normal levels in the following days. Probabale cause of patient's lactic acidosis was his metformin therapy. #H/O Pancreatic Cancer- s/p pancreatectomy/splenectomy and chemotherapy with Gemzar completed 01/07. Oncology was also consulted and felt that his acute condition was not related to his malignancy. His Port-A-Cath was flushed during the hospital stay. #DM2- noncontrolled with elevated hemoglobin A1c of 11. Endocrinology was consulted for medical optimization. Patient Levemir was increased to 36 units daily and started on NovoLog sliding scale. Metformin was discontinued. Dietitian consult was also obtained and patient was counseled on diet options for diabetes control. Allergies: Coded Allergies: NO KNOWN ALLERGIES (07/22/16) Disposition Summary Disposition Principal Diagnosis: syncope Additional Diagnosis: metabolic acidosis,uncontrolled diabetes Protien calorie malnutrition. Discharge Disposition: home or self care Discharge Instructions General Discharge Information Code Status: Full Code Patient's Diet: diabetic Patient's Activity: As tolerated Follow-Up Instructions/Appts: Pt is to follow up with PCP within 1 week f/u with sr. social media & mobile manager with 1-2 weeks f/u with endocrine within 1-2 weeks Medications at Discharge Discharge Medications: Stop taking the following medications: Metformin HCl (Metformin HCl) 500 MG TABLET ORAL TWICE DAILY Insulin Aspart (Novolog) (Unknown Strength) VIAL Inject into fatty tissue SEE SLIDING SCALE Insulin Detemir (Levemir) 100 UNIT/1 ML VIAL Inject into fatty tissue TWICE DAILY Continue taking these medications: Ezetimibe (Zetia) 10 MG TABLET 1 Tablet ORAL DAILY Qty = 90 Comments: Last Taken: 03/11/17 Time: 10:00 AM Omeprazole (Omeprazole) 20 MG CAPSULE.DR 1 Capsule ORAL TWICE DAILY Comments: Last Taken: 03/11/17 Time: 10:00 AM Duloxetine HCl (Duloxetine HCl) 60 MG CAPSULE.DR 1 Capsule ORAL TWICE DAILY Qty = 90 Comments: Last Taken: 03/11/17 Time: 10:00 AM Gemfibrozil (Gemfibrozil) 600 MG TABLET 1 Tablet ORAL TWICE DAILY Qty = 180 Comments: Last Taken: 03/11/17 Time: 10:00 AM Pravastatin Sodium (Pravastatin Sodium) 40 MG TABLET 1 Tablet ORAL DAILY Qty = 90 Comments: Last Taken: 03/10/17 Time: 6:00 PM Oxycodone HCl (Oxycodone HCl) 15 MG TABLET 1 Tablet ORAL 2 x Daily as needed as needed for PAIN Qty = 180 Comments: Last Taken: 03/11/17 Time: 10:20 AM Start taking the following new medications: Insulin Aspart, Recombinant (Novolog Flexpen) 100 UNIT/ML INSULN.PEN 0 Inject into fatty tissue SEE INSTRUCTIONS Qty = 30 No Refills Instructions: sliding scale less than 80mg/dl: No insulin 80-100:6 units 101-120:6 units 121-150:6 units 151-200:8 units 201-250:9 units 251-300:10 units 301-350:11 units 351-400:12 units >400:13 units Comments: NOVOLOG DOSE GIVEN FOR LUNCH COVERAGE ON 03/11/17 Insulin Detemir (Levemir) 100 UNIT/ML VIAL 25 Units Inject into fatty tissue TWICE DAILY Qty = 20 No Refills Comments: Last Taken: 03/11/17 Time: 10:00 AM Copies To: BRENDON SAHU,BROOKE Rebollar
== END 2017-03-11 14:40 | DRG 312 ==
LOC: ERH 14:03 → 1NO 17:42 → ERHI 17:42 → ENRESERV 19:23 → 1NO 20:48 → ENRESERV 03-10 → CANRESERV 03-10 → 1NO 03-10 08:58 → ENPENDDIS 03-11 10:59 → 1NO 03-11 14:40
PROVIDERS: Internal Medicine; Physician Assistant Medical; ADMIT Internal Medicine
DX: I95.1 Orthostatic hypotension (principal); E87.2 Acidosis; C25.9 Malignant neoplasm of pancreas, unspecified; E11.65 Type 2 diabetes mellitus with hyperglycemia; I10 Essential (primary) hypertension; E86.0 Dehydration; E44.1 Mild protein-calorie malnutrition; F32.9 Major depressive disorder, single episode, unspecified; E78.5 Hyperlipidemia, unspecified; F41.9 Anxiety disorder, unspecified; F17.210 Nicotine dependence, cigarettes, uncomplicated; Z79.4 Long term (current) use of insulin; Z68.21 Body mass index [BMI] 21.0-21.9, adult
CPT/HCPCS: 1NP; 36415; 74176; 81001; 82436; 87040; 87070; 87086; 93005; 93010; J1650